=== PATIENT | male | born 1950 | race African-American/Black ===

== ENCOUNTER 2018-10-29 18:09 | Inpatient (IN) | payer OTHER | END 2018-11-12 12:00 | disposition home or self-care (01) | LOC: ER 18:09 → TELE 21:47 → TELE-CENTR 23:04 | PROC: 07B50ZX Excision of Right Axillary Lymphatic, Open Approach, Diagnostic (ICD-10-PCS; principal; 2018-11-11 07:18) | DX: I13.0 Hypertensive heart and chronic kidney disease with heart failure and stage 1 through stage 4 chronic kidney disease, or unspecified chronic kidney disease (principal); N17.0 Acute kidney failure with tubular necrosis; I50.43 Acute on chronic combined systolic (congestive) and diastolic (congestive) heart failure; I24.9 Acute ischemic heart disease, unspecified; C91.10 Chronic lymphocytic leukemia of B-cell type not having achieved remission; I50.82 Biventricular heart failure; I42.9 Cardiomyopathy, unspecified; N18.3 Chronic kidney disease, stage 3 (moderate); E11.22 Type 2 diabetes mellitus with diabetic chronic kidney disease; Z95.0 Presence of cardiac pacemaker; R59.0 Localized enlarged lymph nodes ==

== ENCOUNTER 2018-11-17 12:51 | Inpatient (IN) | payer OTHER, MEDICAID ==
[~2018-11-17] VITALS: Ht 190.5 cm; Wt 101.0 kg
[~2018-11-17 12:51] MED LIST: ALBU2TAB4 PO; AML5T PO; BENZ100C97 PO; DIAZ10TA3 PO; DOCU100T15 PO; FERR-20 PO; FOLITAB OR; FURO40TA4 PO; HYDR-4683 PO; ISOS20TA56 PO; MET50T PO; POLY33504 PO; SACU1TAB4 PO; SPIR25TA8 PO
[2018-11-17 14:24] LABS: Potassium 4.1 mmol/L (3.5-5.1)
[2018-11-17 14:30] LABS: Hematocrit 37.5 % (41.0-53.0); Hemoglobin 12.4 g/dL (13.5-17.5); Mean Corpuscular Hemoglobin 32.6 pg (28.0-32.0); Mean Corpuscular Hgb Conc. 33.1 g/dL (32.0-36.0); Mean Corpuscular Volume 98.7 fL (80.0-100.0); Platelet Count (auto) 185 10^3/uL (140-450); Red Cell Distribution Width 15.9 % (11.8-14.3); White Blood Cell 7.4 10^3/uL (4.4-10.8)
[2018-11-17 14:33] LABS: Albumin 3.4 g/dL (3.4-5.0); BUN/Creatinine Ratio 9.1; Bilirubin, Total 0.5 mg/dL (0.2-1.0); Total Protein 7.1 g/dL (6.4-8.2)
[2018-11-17 14:43] LABS: Basophils % (manual) 0 (0.0-2.0); Blast Cells 0; Metamyelocytes % 0; Myelocytes % 0; Promyelocytes % 0
[2018-11-17 14:44] LABS: INR 1.03 (0.9-1.15); Partial Thromboplastin Time 27.3 sec (23.64-32.05)
[2018-11-17] MEDS ORDERED: NITROGLYCERIN 0.4 MG SL TAB SL PRN (15:00)
[2018-11-17] MEDS ORDERED: FUROSEMIDE 40 MG/4 ML VIAL IV ONE (15:00)
[2018-11-17] MEDS ORDERED: POLYETHYLENE GLYCOL 17 GM PWDR PO PRN (15:00)
[2018-11-17] MEDS ORDERED: MORPHINE SULF INJ 2 MG/ML SYRINGE 1ML IV PRN (15:00)
[2018-11-17] MEDS ORDERED: TEMAZEPAM 15 MG CAP PO PRN (15:00)
[2018-11-17 17:37] LABS: Band Neutrophils % (manual) 1; Eosinophils % (manual) 4 (0-7); Lymphocytes % (manual) 63 (10.0-50.0); Monocytes % (manual) 5 (0-12)
[2018-11-17 17:38] LABS: Reactive Lymphocytes 4
[2018-11-17] MEDS: IPRATROPIUM BROM 0.5 MG/2.5ML INH SOL NEB SCH ×2 (18:09→22:22)
[2018-11-17] MEDS: ALBUTEROL SULF 2.5 MG/0.5ML(0.5%) NEB SOLN NEB SCH ×2 (18:09→22:22)
[2018-11-17] MEDS: ISOSORBIDE DINITRATE 10 MG TAB PO SCH (18:45)
[2018-11-17] MEDS: FUROSEMIDE 40 MG/4 ML VIAL IV SCH (18:45)
[2018-11-17 19:57] LABS: Urine WBC None Seen /hpf (0 - 3)
[2018-11-17] MEDS: HYDROcodone-ACET 10/325MG TAB PO PRN ×2 (19:57→21:08)
--- NOTE | 2018-11-17 20:14 | NUR ---
PATIENT ARRIVED FROM EMERGENCY ROOM AND PLACED IN ROOM 275B. HE IS AO X4 AND AMBULATORY. HE IS ON 2L NC. BED IS LOCKED IN LOWEST POSITION AND SIDE RAILS UP X2. HE HAS BEEN INSTRUCTED TO USE CALL LIGHT IF ASSISTANCE IS NEEDED. WILL CONTINUE TO MONITOR.
[2018-11-17 20:31] LABS: Urine Bacteria NONE SEEN /hpf (None Seen); Urine Blood Negative /uL (Negative)
[2018-11-17] MEDS ORDERED: cloNIDine HCL 0.1 MG TAB PO ONE (21:30)
[2018-11-17] MEDS: SACUBITRIL-VALSARTAN 24mg/26mg TAB PO SCH (22:18)
[2018-11-17 22:35] VITALS: BP 146/113
[2018-11-18 02:53] VITALS: BP 124/74
[2018-11-18 04:45] VITALS: BP 128/92
[2018-11-18] MEDS: HYDROcodone-ACET 10/325MG TAB PO PRN ×2 (05:35→11:43)
[2018-11-18] MEDS: IPRATROPIUM BROM 0.5 MG/2.5ML INH SOL NEB SCH ×5 (05:40→22:10)
[2018-11-18] MEDS: ALBUTEROL SULF 2.5 MG/0.5ML(0.5%) NEB SOLN NEB SCH ×5 (05:40→22:10)
[2018-11-18] MEDS: ISOSORBIDE DINITRATE 10 MG TAB PO SCH ×3 (05:47→17:18)
[2018-11-18] MEDS: FUROSEMIDE 40 MG/4 ML VIAL IV SCH ×2 (05:48→17:18)
[2018-11-18 06:12] LABS: Calcium 8.4 mg/dL (8.5-10.1)
[2018-11-18 06:16] LABS: BUN/Creatinine Ratio 9.8
--- NOTE | 2018-11-18 07:46 | NUR ---
Opening Patient awake, in bed, bed in lowest position, call light within reach. no distress noted at this time MRSA swab sent due to recent admission per [facility] nurse about 2 weeks ago, this is still pending result EF less than 20% per [facility] nurse CXR cardiomegaly. UA negative crea 1.73 trending down rbc 3.8 hgb 12.4 hct 37.5 BNP 3,260 history of pacemaker will continue to monitor this patient
[2018-11-18 09:00] VITALS: BP 133/97
[2018-11-18] MEDS: SACUBITRIL-VALSARTAN 24mg/26mg TAB PO SCH ×2 (10:20→21:39)
[2018-11-18] MEDS: ASPirin 81 mg TAB PO SCH (10:21)
[2018-11-18 13:00] VITALS: BP 135/104
[2018-11-18 17:12] VITALS: BP 136/93
--- NOTE | 2018-11-18 20:00 | NUR ---
OPENING SHIFT NOTE: PATIENT IS RESTING IN BED ON 2L NC. HE IS A0X4 NOT COMPLAINING OF ANY PAIN OR DISCOMFORT AT THE MOMENT. SIDE RAILS ARE UP X2 AND BED IS LOCKED IN LOWEST POSITION. WILL CONTINUE TO MONITOR.
[2018-11-18 22:00] VITALS: BP 126/95
[2018-11-19] MEDS: HYDROcodone-ACET 10/325MG TAB PO PRN ×2 (02:08→09:02)
[2018-11-19 04:30] VITALS: BP 135/98
[2018-11-19] MEDS: IPRATROPIUM BROM 0.5 MG/2.5ML INH SOL NEB SCH ×6 (05:58→22:12)
[2018-11-19] MEDS: ALBUTEROL SULF 2.5 MG/0.5ML(0.5%) NEB SOLN NEB SCH ×6 (05:58→22:12)
[2018-11-19 06:01] LABS: BUN/Creatinine Ratio 8.5; Calcium 8.5 mg/dL (8.5-10.1); Potassium 3.9 mmol/L (3.5-5.1)
[2018-11-19] MEDS: FUROSEMIDE 40 MG/4 ML VIAL IV SCH ×2 (06:27→17:06)
[2018-11-19] MEDS: ISOSORBIDE DINITRATE 10 MG TAB PO SCH ×3 (06:27→17:06)
--- NOTE | 2018-11-19 07:46 | NUR ---
opening patient awake in bed, bed in lowest position, call light within reach. No distress noted at this time. Patient talks about some issues he would like resolved prior to a discharge order; follow up on last wednesdays procedure, he states he had some tissue removed here and tested with MD Serrano, dr odom was consulted for lymphoma Also he states he needs a breathing machine and/or oxygen supplementation; educated patient on the process and will endorse to hospitalist. Will f/u with morning assessment, and continue to monitor this patient.
[2018-11-19 08:36] VITALS: BP 149/104
[2018-11-19] MEDS: SACUBITRIL-VALSARTAN 24mg/26mg TAB PO SCH ×2 (09:02→23:00)
[2018-11-19] MEDS: ASPirin 81 mg TAB PO SCH (09:02)
[2018-11-19 13:00] VITALS: BP 139/101
[2018-11-19 17:00] VITALS: BP 147/111
--- NOTE | 2018-11-19 17:01 | NUR ---
assessment Patient is a 68 year old male who is alert and oriented. Prior to admission patient lived home with his sister Munira who is his caregiver and functioned with her assistance. Patient has a rollator and a cane for home use. Patient informed me he has been admitted again due to Chest pain and SOB. Patient to return home on discharge. Patient has no post discharge needs. Patient to change insurance to [facility] on 11/29/18. Patient agrees to discharge plan home. Addendum: 11/19/18 at 1703 by Kiesha ALEX Amended: Links added.
--- NOTE | 2018-11-19 19:10 | NUR ---
OPENING SHIFT NOTE Assumed care of patient. A&Ox4. Currently on room air with no s/s of SOB or distress. Patient denies pain at this time. 18 gauge IV in left AC flushed with NS and is patent. Patient reports ability to ambulate with a can at baseline. Cane is present at the bedside. Patient informed of POC and verbalizes understanding. Patient instructed to call for assistance if needed. Bed left in low locked position and call sullivan is within reach.
[2018-11-19 21:40] VITALS: BP 142/88
[2018-11-19] MEDS: TEMAZEPAM 15 MG CAP PO PRN (23:00)
[2018-11-20] VITALS (7 sets, daily range): BP systolic 133–143; BP diastolic 69–109
--- NOTE | 2018-11-20 02:00 | NUR ---
CHRIS Received call from [facility] that patient experienced a 6 beat run of v-tach. Patient is resting comfortably in bed, asymptomatic. No c/o chest pain or SOB. Will continue to monitor PRN. Addendum: 11/20/18 at 0211 by BRONSON LAN RN RN VS- bp: 127/81 HR: 85 Spo2: 97% on RA
[2018-11-20] MEDS: ALBUTEROL SULF 2.5 MG/0.5ML(0.5%) NEB SOLN NEB SCH ×5 (06:22→22:42)
[2018-11-20] MEDS: IPRATROPIUM BROM 0.5 MG/2.5ML INH SOL NEB SCH ×5 (06:22→22:30)
[2018-11-20] MEDS: FUROSEMIDE 40 MG/4 ML VIAL IV SCH ×2 (06:32→17:49)
[2018-11-20] MEDS: ISOSORBIDE DINITRATE 10 MG TAB PO SCH ×3 (06:33→17:49)
--- NOTE | 2018-11-20 07:30 | NUR ---
OPENING SHIFT NOTE PATIENT AWAKE MAKING HIS BED. PATIENT DENIES PAIN, SOB OR ANY DISTRESS. AMBULATING WITH A STEADY GAIT. PATIENT VERBALIZED UNDERSTANDING OF DAYS POC. BED IN LOWEST LOCKED POSITION CALL LIGHT WITHIN REACH. WILL CONTINUE TO MONITOR
[2018-11-20] MEDS: SACUBITRIL-VALSARTAN 24mg/26mg TAB PO SCH ×2 (08:50→21:54)
[2018-11-20] MEDS: ASPirin 81 mg TAB PO SCH (08:50)
[2018-11-20] MEDS: HYDROcodone-ACET 10/325MG TAB PO PRN (08:51)
--- NOTE | 2018-11-20 09:46 | NUR ---
DRESSING CHANGE DRESSING CHANGED TO RIGHT INCISION. OLD DRESSING WAS COMING OFF. GAUZE PADS CHANGED AND RE-TAPPED. PATIENT TOLERATED WELL. WILL CONTINUE TO MONITOR
[2018-11-20] MEDS ORDERED: amLODIPine BESYLATE 5 MG TAB PO SCH (10:00)
--- NOTE | 2018-11-20 15:19 | NUR ---
AT BEDSIDE DR BLAND AT BEDSIDE. PATIENT ALERT AND ORIENTED. NO NEW ORDERS GIVEN
--- NOTE | 2018-11-20 18:45 | NUR ---
END OF SHIFT NOTE PATIENT AWAKE IN BED WATCHING TV WHILE EATING DINNER. DENIES PAIN SOB OR ANY DISTRESS AT THIS TIME. BED IS IN LOWEST LOCKED POSITION CALL LIGHT WITHIN REACH. WILL ENDORSE CARE TO NOC RN
--- NOTE | 2018-11-20 19:20 | NUR ---
OPENING SHIFT NOTE Assumed care of patient. Patient is A&Ox4. Currently on room air with no s/s of distress. Reports mild SOB following ambulation. Patient instructed to sit down and rest until SOB resolves. Spo2 is 100% Patient denies pain at this time. Patient is ambulating without the use of assistive devices, but reports the use of a cane at baseline. Cane is present at bedside and patient encouraged to use it while ambulating. 18 gauge IV in left AC flushed with NS and is patent. Patient instructed to call for assistance if needed. Bed left in low locked position and call sullivan is within reach. Will continue to monitor PRN.
--- NOTE | 2018-11-20 20:00 | NUR ---
DRESSING CHANGE Dressing to right lateral chest is not intact. 4x4 gauze and tape removed. Steri strips are intact. No drainage noted. Covered with sterile gauze and secured with tape. Patient tolerates well.
[2018-11-20] MEDS: TEMAZEPAM 15 MG CAP PO PRN (21:55)
[2018-11-20] MEDS: CARVEDILOL 3.125 MG TAB PO SCH (21:57)
[2018-11-21] VITALS (7 sets, daily range): BP systolic 121–135; BP diastolic 85–96
[2018-11-21] MEDS: ISOSORBIDE DINITRATE 10 MG TAB PO SCH ×3 (05:34→18:41)
[2018-11-21] MEDS: FUROSEMIDE 40 MG/4 ML VIAL IV SCH ×2 (05:34→18:41)
[2018-11-21] MEDS: ALBUTEROL SULF 2.5 MG/0.5ML(0.5%) NEB SOLN NEB SCH ×5 (05:55→22:55)
[2018-11-21] MEDS: IPRATROPIUM BROM 0.5 MG/2.5ML INH SOL NEB SCH ×5 (05:55→22:55)
[2018-11-21 05:56] LABS: BUN/Creatinine Ratio 9.1; Calcium 8.9 mg/dL (8.5-10.1); Potassium 3.8 mmol/L (3.5-5.1)
[2018-11-21 06:25] LABS: Hemoglobin 14.2 g/dL (13.5-17.5); Mean Corpuscular Hemoglobin 33.2 pg (28.0-32.0); Mean Corpuscular Hgb Conc. 33.7 g/dL (32.0-36.0); Mean Corpuscular Volume 98.5 fL (80.0-100.0); Platelet Count (auto) 215 10^3/uL (140-450); Red Blood Cells 4.26 10^6/uL (4.5-5.90); Red Cell Distribution Width 16.2 % (11.8-14.3); White Blood Cell 6.9 10^3/uL (4.4-10.8)
[2018-11-21 06:31] LABS: Band Neutrophils % (manual) 0; Basophils % (manual) 0 (0.0-2.0); Blast Cells 0; Metamyelocytes % 0; Myelocytes % 0; Promyelocytes % 0
--- NOTE | 2018-11-21 07:15 | NUR ---
OPENING SHIFT NOTE PATIENT IS UP AMBULATING IN THE [place] WITH A STEADY GAIT. WALKED WITH PATIENT BACK TO HIS ROOM AND DISCUSSED POC. PATIENT VERBALIZED UNDERSTANDING. BED IS IN LOWEST LOCKED POSITION CALL LIGHT IS WITHIN REACH. WILL CONTINUE TO MONITOR
[2018-11-21 08:49] LABS: Eosinophils % (manual) 4 (0-7); Lymphocytes % (manual) 49 (10.0-50.0); Monocytes % (manual) 9 (0-12)
[2018-11-21 08:51] LABS: Reactive Lymphocytes 3
[2018-11-21] MEDS: SACUBITRIL-VALSARTAN 24mg/26mg TAB PO SCH ×2 (09:38→22:02)
[2018-11-21] MEDS: CARVEDILOL 3.125 MG TAB PO SCH ×2 (09:38→22:02)
[2018-11-21] MEDS: ASPirin 81 mg TAB PO SCH (09:39)
--- NOTE | 2018-11-21 14:11 | NUR ---
NUTRITION ASSESSMENT NOTES Please refer to link notes of nutrition screen form filed under the intervention section of the plan of care for further details. Est. Needs: 2000 kcal to 2500 kcal (20-25 kcal/kgBW), 88 gms to 106 gms pro (1.0-1.2 gms/kgIBW). Will continue to monitor pertinent labs and reassess nutrient need prn Thank you. Addendum: 11/21/18 at [address] Amended: Links added.
--- NOTE | 2018-11-21 18:45 | NUR ---
END OF SHIFT NOTE PATIENT IN BED WATCHING TV. PATIENT DENIES PAIN SOB OR ANY DISTRESS. BED IS IN LOWEST LOCKED POSITION CALL LIGHT WITHIN REACH. WILL ENDORSE CARE TO NOC RN
--- NOTE | 2018-11-21 19:30 | NUR ---
Opening Shift Note Received report from Nelda BHATIA. Assumed care of patient, awake and alert. No S/S of distress/SOB or pain. Instructed on POC and to call for assist PRN, will continue to monitor for changes Q1hr and PRN.
[2018-11-21] MEDS: TEMAZEPAM 15 MG CAP PO PRN (22:08)
[2018-11-22 05:00] VITALS: BP 142/94
[2018-11-22] MEDS: FUROSEMIDE 40 MG/4 ML VIAL IV SCH ×2 (06:02→18:28)
[2018-11-22] MEDS: ISOSORBIDE DINITRATE 10 MG TAB PO SCH ×3 (06:03→18:29)
[2018-11-22 06:20] LABS: Hematocrit 42.1 % (41.0-53.0); Hemoglobin 14.4 g/dL (13.5-17.5); Mean Corpuscular Hemoglobin 33.6 pg (28.0-32.0); Mean Corpuscular Hgb Conc. 34.2 g/dL (32.0-36.0); Mean Corpuscular Volume 98.2 fL (80.0-100.0); Platelet Count (auto) 184 10^3/uL (140-450); Red Blood Cells 4.28 10^6/uL (4.5-5.90); White Blood Cell 6.2 10^3/uL (4.4-10.8)
[2018-11-22 06:23] LABS: Calcium 9.4 mg/dL (8.5-10.1); Potassium 4.1 mmol/L (3.5-5.1)
[2018-11-22 06:29] LABS: BUN/Creatinine Ratio 11.8
[2018-11-22 06:33] LABS: Band Neutrophils % (manual) 0; Basophils % (manual) 0 (0.0-2.0); Blast Cells 0; Metamyelocytes % 0; Myelocytes % 0; Promyelocytes % 0; Reactive Lymphocytes 0
[2018-11-22] MEDS: IPRATROPIUM BROM 0.5 MG/2.5ML INH SOL NEB SCH ×5 (07:17→21:18)
[2018-11-22] MEDS: ALBUTEROL SULF 2.5 MG/0.5ML(0.5%) NEB SOLN NEB SCH ×5 (07:17→21:18)
--- NOTE | 2018-11-22 07:35 | NUR ---
Care endorsed to Shannan BHATIA.
--- NOTE | 2018-11-22 07:56 | NUR ---
RECEIVED REPORT AND ASSUME CARE OF PT. A/OX4. DENIED S/S ACUTE DISTRESS. UPDATE PT WITH POC. BED AT LOWEST POSITION. CALL LIGHT AND BELONGINGS WITHIN REACH. WILL CONT TO MONITOR.
[2018-11-22 08:35] LABS: Eosinophils % (manual) 4 (0-7); Lymphocytes % (manual) 56 (10.0-50.0); Monocytes % (manual) 11 (0-12)
[2018-11-22 08:38] VITALS: BP 125/85
[2018-11-22] MEDS: SACUBITRIL-VALSARTAN 24mg/26mg TAB PO SCH ×2 (10:02→21:51)
[2018-11-22] MEDS: ASPirin 81 mg TAB PO SCH (10:03)
[2018-11-22] MEDS: CARVEDILOL 3.125 MG TAB PO SCH ×2 (10:03→21:52)
[2018-11-22 13:00] VITALS: BP 129/92
[2018-11-22 16:45] VITALS: BP 138/91
--- NOTE | 2018-11-22 19:20 | NUR ---
Opening Shift Note Received report from Didian RN. Assumed care of patient, awake and alert. No S/S of distress/SOB or pain. Instructed on POC and to call for assist PRN, will continue to monitor for changes Q1hr and PRN.
[2018-11-22 20:00] VITALS: BP 126/91
[2018-11-22 21:43] VITALS: BP 126/91
[2018-11-22] MEDS: TEMAZEPAM 15 MG CAP PO PRN (21:51)
[2018-11-23] VITALS (8 sets, daily range): BP systolic 125–142; BP diastolic 68–101
[2018-11-23] MEDS: FUROSEMIDE 40 MG/4 ML VIAL IV SCH ×2 (06:15→17:34)
[2018-11-23] MEDS: ISOSORBIDE DINITRATE 10 MG TAB PO SCH ×3 (06:16→17:35)
[2018-11-23] MEDS: ALBUTEROL SULF 2.5 MG/0.5ML(0.5%) NEB SOLN NEB SCH ×5 (06:45→22:50)
[2018-11-23] MEDS: IPRATROPIUM BROM 0.5 MG/2.5ML INH SOL NEB SCH ×5 (06:45→22:50)
[2018-11-23] MEDS: SACUBITRIL-VALSARTAN 24mg/26mg TAB PO SCH ×2 (09:18→22:32)
[2018-11-23] MEDS: CARVEDILOL 3.125 MG TAB PO SCH ×2 (09:19→22:31)
[2018-11-23] MEDS: ASPirin 81 mg TAB PO SCH (09:20)
--- NOTE | 2018-11-23 09:20 | NUR ---
Respiratory note: PT ASSESSED FOR ORDERED RA ABG. PT SPO2 97-99% ON RAQ. PT AGREED TO WALK WITH RT AND MONITOR SPO2. SPO2 MAINTAINED 97%. PT AWARE. DR. NICOLE NOTIFIED AND ORDERED TO DC ABG ORDER.
--- NOTE | 2018-11-23 10:37 | NUR ---
Per consult home walker, home shower chair and home nebulizer. Contacted [facility] Ph: ) Fax: ) faxed medical records. Per Danilo from [facility] they will deliver the equipment home today and will call me back with a time frame once they receive authorization from [facility]. Addendum: 11/23/18 at 1037 by ADELINA KOCH Amended: Links added. Addendum: 11/23/18 at 1056 by ADELINA KOCH Aj Falcon from [facility] home shower chair is not cover by the insurance. Per Terrie from [facility] she is still waiting for authorization from [facility] for home walker and home nebulizer. I will inform RN and provider. Addendum: 11/24/18 at 1115 by ADELINA KOCH SS Aj Falcon from [facility] home shower chair was approve by secondary insurance and they will deliver home walker, shower chair and nebulizer at bed side today between the hours 10:00am-12:30. Informed JANNETTE Oropeza.
--- NOTE | 2018-11-23 12:57 | NUR ---
Spoke to Tigist at [facility] and she stated that [facility] gives auth to [employer], not [facility]. I have faxed the dme order previously to [facility])
--- NOTE | 2018-11-23 15:33 | NUR ---
A/OX4. DENIED S/S ACUTE DISTRESS. DC INSTRUCTIONS GIVEN AND PT VERBALIZED UNDERSTANDING. EMPHASIZED NEED FOR F/U APPOINTMENTS. PT WAITING FOR A RIDE HOME. CHARGE NURSE AWARE. Addendum: 11/23/18 at 2003 by VALENTINE QUINTERO RN PT OWN MEDS PICK FROM PHARMACY AND HANDED TO PT.
--- NOTE | 2018-11-23 15:57 | NUR ---
I called [facility] [phone] extension [phone] and left message for case assembler Rebekah regarding needing authorization for [facility] Care-awaiting return call.
--- NOTE | 2018-11-23 16:42 | NUR ---
I received a message from Emily at [facility] asking me to fax the [facility] order to [phone]-faxed as requested. Per the message, the order for the nebulizer goes through the health plan.
--- NOTE | 2018-11-23 16:47 | NUR ---
I faxed nebulizer order to [facility].
--- NOTE | 2018-11-23 17:13 | NUR ---
I spoke with Emily at [facility], she said she is sending the authorization for both the FWW and the nebulizer to [facility].
--- NOTE | 2018-11-23 17:16 | NUR ---
PER SS, THEY ARE STILL WAITING FOR AUTHORIZATION FOR DME, SO NOT SAFE TO DC PT.
--- NOTE | 2018-11-23 19:50 | NUR ---
PT RESTING IN BED. NO S/S ACUTE DISTRESS NOTED. ENDORSED CARE TO NIGHT NURSE.
--- NOTE | 2018-11-23 20:00 | NUR ---
patient is unable to be discharged home at this time, we have not been able to receive proper equipment from home health, front wheel walker and nebulizer. patient states he does not feel safe going home without it. hospitalist paged to hold discharge until morning. will continue to monitor patient and await hospitalist orders.
[2018-11-23] MEDS: TEMAZEPAM 15 MG CAP PO PRN (23:06)
[2018-11-24 05:44] VITALS: BP 129/95
[2018-11-24] MEDS: ISOSORBIDE DINITRATE 10 MG TAB PO SCH ×2 (06:05→12:49)
[2018-11-24] MEDS: FUROSEMIDE 40 MG/4 ML VIAL IV SCH (06:05)
[2018-11-24] MEDS: IPRATROPIUM BROM 0.5 MG/2.5ML INH SOL NEB SCH ×3 (07:30→14:15)
[2018-11-24] MEDS: ALBUTEROL SULF 2.5 MG/0.5ML(0.5%) NEB SOLN NEB SCH ×3 (07:30→14:15)
[2018-11-24 08:15] VITALS: BP 123/78
--- NOTE | 2018-11-24 08:33 | NUR ---
Opening Shift Note Assumed care of patient, awake and alert. No S/S of distress OR SOB. Pt rates pain at a 6/10 on the adult pain scale and denies any pain medications at this time. Bed in lowest and locked position with side rails up x2. Instructed on POC and to call for assist PRN, will continue to monitor for changes Q1hr and PRN. Addendum: 11/24/18 at 0837 by BRONSON LEBLANC RN RN Pt rounds at 0740
[2018-11-24 09:00] VITALS: BP 123/78
--- NOTE | 2018-11-24 09:16 | NUR ---
I have called [facility] and had to leave message concerning hold on pt d/c since [facility] has not given auth yet. They are to call me back and I will find out what the hold up is on issuing auth to [facility]
[2018-11-24] MEDS: SACUBITRIL-VALSARTAN 24mg/26mg TAB PO SCH (09:35)
[2018-11-24] MEDS: CARVEDILOL 3.125 MG TAB PO SCH (09:36)
[2018-11-24] MEDS: ASPirin 81 mg TAB PO SCH (09:36)
--- NOTE | 2018-11-24 09:38 | NUR ---
called PERLITA Welch for [facility] and had to leave message requesting her to call me and let me know why [facility] did not get auth for dme yesterday. I also stated pt's d/c was held because of this. I am on hold now to see if [facility] has gotten auth from [facility]
--- NOTE | 2018-11-24 09:54 | NUR ---
Per Felipa at [facility], they have received auth this am. Per Danilo at [facility], he will find out from his dispatcher when they are scheduled to deliver equipment and notify me and primary RN.
--- NOTE | 2018-11-24 10:05 | NUR ---
RECIEVED CALL FROM [employer]. ETA FOR SUPPLIES DELIVERY IS [phone].
--- NOTE | 2018-11-24 10:40 | NUR ---
DR. NICOLE AT BEDSIDE DISCUSSING POC WITH PT.
[2018-11-24 13:00] VITALS: BP 125/89
--- NOTE | 2018-11-24 15:50 | NUR ---
Discharge instructions given as ordered. Encourage to follow up with PMD as instructed. All questions and concerns addressed. Patient verbalized understanding. Medication reconciliation form completed and copy given to patient. Home medications held in Pharmacy returned to patient. No needed vaccines. IV removed with catheter intact, pressure dressing applied. Telemetry unit returned to [facility].
--- NOTE | 2018-11-24 15:55 | NUR ---
Cab called Per patient request.
--- NOTE | 2018-11-24 16:15 | NUR ---
Patient denied wheel chair. Pt taken to cab with all personal belongings, accompanied by staff. No distress noted at time of departure.
== END 2018-11-24 16:15 | disposition home or self-care (01) | DRG 291 ==
LOC: EDBD 12:51 → ER 12:58 → TELE 12:59 → TELE-WESTW 22:34
PROVIDERS: ADMIT Internal Medicine; ATTEND Internal Medicine
DX: I13.0 Hypertensive heart and chronic kidney disease with heart failure and stage 1 through stage 4 chronic kidney disease, or unspecified chronic kidney disease (principal); J96.00 Acute respiratory failure, unspecified whether with hypoxia or hypercapnia; I50.23 Acute on chronic systolic (congestive) heart failure; C85.90 Non-Hodgkin lymphoma, unspecified, unspecified site; J44.9 Chronic obstructive pulmonary disease, unspecified; N18.3 Chronic kidney disease, stage 3 (moderate); I25.10 Atherosclerotic heart disease of native coronary artery without angina pectoris; F17.210 Nicotine dependence, cigarettes, uncomplicated; I42.0 Dilated cardiomyopathy; Z82.3 Family history of stroke; Z82.49 Family history of ischemic heart disease and other diseases of the circulatory system; Z83.3 Family history of diabetes mellitus; Z86.73 Personal history of transient ischemic attack (TIA), and cerebral infarction without residual deficits; Z95.810 Presence of automatic (implantable) cardiac defibrillator; Z84.1 Family history of disorders of kidney and ureter
CPT/HCPCS: 36415; 71046; 80048; 80053; 81001; 83880; 84484; 85007; 85027; 85610; 85730; 87081; 93005; 94640; 94761; 96374; G0378

== ENCOUNTER 2019-02-03 21:03 | Inpatient (IN) | payer OTHER, MEDICAID ==
[~2019-02-03] VITALS: Ht 190.5 cm; Wt 102.5 kg
[~2019-02-03 21:03] MED LIST changes: -DIAZ10TA3 PO; -HYDR-4683 PO; +HYDR-4833 PO
[2019-02-03 22:27] LABS: INR 0.97 (0.9-1.15); Partial Thromboplastin Time 23.9 sec (23.64-32.05)
[2019-02-03 22:32] LABS: Albumin 3.8 g/dL (3.4-5.0); BUN/Creatinine Ratio 18.1; Potassium 3.1 mmol/L (3.5-5.1)
[2019-02-03 22:33] LABS: Hematocrit 42.4 % (41.0-53.0); Hemoglobin 14.2 g/dL (13.5-17.5); Mean Corpuscular Hemoglobin 31.9 pg (28.0-32.0); Mean Corpuscular Hgb Conc. 33.5 g/dL (32.0-36.0); Mean Corpuscular Volume 95.3 fL (80.0-100.0); Platelet Count (auto) 140 10^3/uL (140-450); Red Blood Cells 4.45 10^6/uL (4.5-5.90); Red Cell Distribution Width 17.2 % (11.8-14.3); White Blood Cell 9.8 10^3/uL (4.4-10.8)
[2019-02-03 22:36] LABS: Bilirubin, Total 1.1 mg/dL (0.2-1.0); Total Protein 7.6 g/dL (6.4-8.2)
[2019-02-03 22:48] LABS: Basophils % (manual) 0 (0.0-2.0); Blast Cells 0; Metamyelocytes % 0; Myelocytes % 0; Promyelocytes % 0
[2019-02-04] MEDS ORDERED: MORPHINE SULF INJ 2 MG/ML SYRINGE 1ML IV PRN
[2019-02-04] MEDS ORDERED: ACETAMINOPHEN 325 MG TAB PO PRN
[2019-02-04] MEDS ORDERED: ALBUTEROL SULF 2.5 MG/0.5ML(0.5%) NEB SOLN NEB PRN
[2019-02-04] MEDS ORDERED: ATORVASTATIN 20 MG TAB PO ONE
[2019-02-04] MEDS ORDERED: NITROGLYCERIN 0.4 MG SL TAB SL PRN
[2019-02-04] MEDS ORDERED: ONDANSETRON HCL 4 MG/2 ML VIAL IV PRN
[2019-02-04] MEDS ORDERED: POTASSIUM CHL 20 Meq TABLET PO ONE
[2019-02-04 01:05] LABS: Band Neutrophils % (manual) 1; Eosinophils % (manual) 2 (0-7); Lymphocytes % (manual) 59 (10.0-50.0); Monocytes % (manual) 14 (0-12); Reactive Lymphocytes 2
--- NOTE | 2019-02-04 06:15 | NUR ---
Respiratory note: PT ASSESSED FOR PRN MN TX. HR 74, RR 15, POX 97% ON 2L/M NC, BREATH SOUNDS ARE CLEAR/DIMINISHED. NO SOB OR DISTRESS NOTED. PT WAS NOTIFY TO HAVE RT PAGE FOR MN TX.
[2019-02-04] MEDS: HYDROcodone-ACET 5/325MG TAB PO PRN (06:32)
[2019-02-04] MEDS: PANTOPRAZOLE 40 MG TAB PO SCH (07:37)
[2019-02-04 08:40] VITALS: BP 106/71
[2019-02-04 09:19] VITALS: BP 108/89
[2019-02-04] MEDS ORDERED: amLODIPine BESYLATE 5 MG TAB PO SCH (10:00)
[2019-02-04] MEDS ORDERED: METOPROLOL TARTRATE 25 MG TAB PO SCH ×2 (10:00→11:00)
[2019-02-04] MEDS ORDERED: GABA100C9 PO (10:03)
[2019-02-04] MEDS ORDERED: NITR0.4S29 SL (10:03)
[2019-02-04] MEDS ORDERED: NALO4SPR2 (10:03)
[2019-02-04] MEDS: SACUBITRIL-VALSARTAN 24mg/26mg TAB PO SCH ×2 (10:46→21:57)
[2019-02-04] MEDS: ISOSORBIDE MONONITRATE IR 20 MG TAB PO SCH ×2 (10:46→21:58)
[2019-02-04] MEDS: POTASSIUM CHL 10 Meq TABLET PO SCH (10:48)
[2019-02-04] MEDS: FUROSEMIDE 40 MG TAB PO SCH (10:48)
[2019-02-04] MEDS: ASPirin 81 mg TAB PO SCH (10:48)
[2019-02-04] MEDS: SPIRONOLACTONE 25 MG TAB PO SCH (10:49)
[2019-02-04 11:07] LABS: Hematocrit 43.4 % (41.0-53.0); Hemoglobin 14.4 g/dL (13.5-17.5); Mean Corpuscular Hemoglobin 31.8 pg (28.0-32.0); Mean Corpuscular Hgb Conc. 33.1 g/dL (32.0-36.0); Mean Corpuscular Volume 96.3 fL (80.0-100.0); Platelet Count (auto) 120 10^3/uL (140-450); Red Blood Cells 4.51 10^6/uL (4.5-5.90); Red Cell Distribution Width 16.8 % (11.8-14.3); White Blood Cell 7.3 10^3/uL (4.4-10.8)
[2019-02-04 11:09] LABS: Band Neutrophils % (manual) 0; Basophils % (manual) 0 (0.0-2.0); Blast Cells 0; Metamyelocytes % 0; Myelocytes % 0; Promyelocytes % 0
[2019-02-04 11:29] LABS: Calcium 9.4 mg/dL (8.5-10.1); Potassium 3.7 mmol/L (3.5-5.1)
[2019-02-04 13:00] VITALS: BP 105/63
[2019-02-04 13:04] LABS: Eosinophils % (manual) 2 (0-7); Lymphocytes % (manual) 64 (10.0-50.0); Monocytes % (manual) 4 (0-12); Reactive Lymphocytes 4
[2019-02-04 15:07] LABS: Magnesium 1.9 mg/dL (1.6-2.6); Potassium 3.6 mmol/L (3.5-5.1)
[2019-02-04 17:00] VITALS: BP 114/68
--- NOTE | 2019-02-04 19:18 | NUR ---
Respiratory note: ASSESSED PT FOR PRN MED NEB TX. PT IS CURRENTLY ON ROOM AIR: HR 63, RR 16, SPO2 95%. PT SHOWS NO S/S OF SOB OR RESPIRATORY DISTRESS. MED NEB TX NOT INDICATED AT THIS TIME. WILL CONTINUE TO MONITOR.
--- NOTE | 2019-02-04 19:24 | NUR ---
Opening Shift Note Assumed care of patient, awake and alert x 4. No S/S of distress/SOB or pain. Bed is in lowest position and locked. Call light within reach. Board updated. Tele box number matches monitor and leads are in correct placement. Instructed on POC and to call for assist PRN, will continue to monitor for changes Q1hr and PRN.
--- NOTE | 2019-02-04 20:28 | NUR ---
IV insertion IV access obtained, via clean technique by inserting a 20 gauge catheter into a vein in the left forearm after 1 attempt. IV secured properly. No trauma to site. Patient tolerated well.
[2019-02-04] MEDS ORDERED: HYDR-4798 PO (21:17)
[2019-02-04 21:44] VITALS: BP 123/80
[2019-02-04] MEDS: CARVEDILOL 3.125 MG TAB PO SCH (21:55)
[2019-02-04] MEDS: TEMAZEPAM 15 MG CAP PO PRN (21:59)
[2019-02-04] MEDS: ATORVASTATIN 20 MG TAB PO SCH (22:00)
[2019-02-05] MEDS: HYDROcodone-ACET 5/325MG TAB PO PRN (03:06)
[2019-02-05 05:36] VITALS: BP 105/51
--- NOTE | 2019-02-05 05:50 | NUR ---
PT ASSESSED FOR PRN HHN TX. PT IS ON 3LNC, SPO2 97%, HR 40, RR 19. NO S/S OF RESPIRATORY DISTRESS. PT AWARE TO HAVE RT PAGED IF HE NEEDS A BREATHING TX. WILL CONTINUE TO MONITOR.
[2019-02-05 06:04] LABS: Magnesium 1.9 mg/dL (1.6-2.6); Potassium 3.5 mmol/L (3.5-5.1)
[2019-02-05 06:07] LABS: BUN/Creatinine Ratio 18.5; Calcium 9.2 mg/dL (8.5-10.1)
[2019-02-05] MEDS: PANTOPRAZOLE 40 MG TAB PO SCH (06:35)
--- NOTE | 2019-02-05 07:30 | NUR ---
Opening Shift Note Assumed care of patient, awake and alert. No S/S of distress/SOB or pain. Instructed on POC and to call for assist PRN, will continue to monitor for changes Q1hr and PRN.
[2019-02-05 08:00] VITALS: BP 123/94
[2019-02-05 09:00] VITALS: BP 123/94
[2019-02-05] MEDS: ASPirin 81 mg TAB PO SCH (10:32)
[2019-02-05] MEDS: SPIRONOLACTONE 25 MG TAB PO SCH (10:32)
[2019-02-05] MEDS: CARVEDILOL 3.125 MG TAB PO SCH ×2 (10:33→22:01)
[2019-02-05] MEDS: ISOSORBIDE MONONITRATE IR 20 MG TAB PO SCH ×2 (10:33→22:01)
[2019-02-05] MEDS: SACUBITRIL-VALSARTAN 24mg/26mg TAB PO SCH ×2 (10:33→22:01)
[2019-02-05] MEDS: FUROSEMIDE 40 MG TAB PO SCH (10:34)
[2019-02-05] MEDS: POTASSIUM CHL 10 Meq TABLET PO SCH (10:34)
[2019-02-05 13:00] VITALS: BP 110/94
[2019-02-05 17:00] VITALS: BP 107/79
--- NOTE | 2019-02-05 19:05 | NUR ---
PT ASSESSED FOR PRN TX. PT IS RESTING WITH NO ACUTE DISTRESS NOTED. TX IS NOT INDICATED AT THIS TIME. PT IS AWARE TO PAGE IF TX NEEDED OR BECOMES SOB. HR 65 RR 18 POX99% ON 3 LPM VIA NC. B/S CLEAR.
[2019-02-05 21:57] VITALS: BP 124/64
[2019-02-05] MEDS: MAGNESIUM OXIDE 400 MG TAB PO SCH (22:02)
[2019-02-05] MEDS: TEMAZEPAM 15 MG CAP PO PRN (22:02)
[2019-02-05] MEDS: ATORVASTATIN 20 MG TAB PO SCH (22:02)
[2019-02-06 04:46] VITALS: BP 126/75
[2019-02-06 05:33] LABS: BUN/Creatinine Ratio 17.7; Calcium 9.2 mg/dL (8.5-10.1); Potassium 3.9 mmol/L (3.5-5.1)
[2019-02-06] MEDS: PANTOPRAZOLE 40 MG TAB PO SCH (06:12)
[2019-02-06 08:00] VITALS: BP 107/76
[2019-02-06 09:00] VITALS: BP 107/76
--- NOTE | 2019-02-06 10:28 | NUR ---
Respiratory note: PT ASSESSED FOR PRN MED NEB TX. NO SOB NOTED ON RA. POX 96%, HR 45, RR 20. B/S ARE CLEAR THROUGHOUT POSTERIORLY. PT IS AWARE TO PRESS THE CALL LIGHT IF HE FEELS SOB TO RECEIVE A MED NEB TX.
[2019-02-06] MEDS: SPIRONOLACTONE 25 MG TAB PO SCH (11:13)
[2019-02-06] MEDS: CARVEDILOL 3.125 MG TAB PO SCH ×2 (11:13→22:37)
[2019-02-06] MEDS: ASPirin 81 mg TAB PO SCH (11:13)
[2019-02-06] MEDS: SACUBITRIL-VALSARTAN 24mg/26mg TAB PO SCH ×2 (11:13→22:38)
[2019-02-06] MEDS: ISOSORBIDE MONONITRATE IR 20 MG TAB PO SCH ×2 (11:14→22:38)
[2019-02-06] MEDS: MAGNESIUM OXIDE 400 MG TAB PO SCH ×2 (11:14→22:38)
[2019-02-06 13:00] VITALS: BP 104/65
[2019-02-06 17:00] VITALS: BP 109/69
--- NOTE | 2019-02-06 19:25 | NUR ---
Opening Shift Note Assumed care of patient, awake and alert x 4. No S/S of distress/SOB or pain.Bed is in lowest position and locked. Call light within reach. Board updated. Tele box number matches monitor and leads are in correct placement. Tele box number matches monitor and leads are in correct placement. Instructed on POC and to call for assist PRN, will continue to monitor for changes Q1hr and PRN.
--- NOTE | 2019-02-06 20:20 | NUR ---
Respiratory note: ASSESSED PT FOR PRN MED NEB AT THIS TIME, PT DENIES SOB AT THIS TIME, NO RESP DISTRESS NOTED, NO TX INDICATED. PULSE OX 96% ON 3LNC, HR 79, RR 20, BILATERAL BS CLEAR.
--- NOTE | 2019-02-06 21:28 | NUR ---
Patient had a sixteen beat run of ventricular tachycardia at 2110. Patient was reportedly not doing anything besides laying in bed when event occurred. Patient is asymptomatic. Patient had already returned to paced rhythm before staff entered room. Vitals: BP: 132/72, HR: 75, RR: 18, temp: 98.3, O2 sat: 99% on 2 l/min NC, no pain. EKG attempted but patient was in paced rhythm at this time, not V-Tach. Event printed by slot technician and placed in chart. Will notify on-call joint sealer.
--- NOTE | 2019-02-06 21:29 | NUR ---
MD Samuels paged about ventricular tachycardia
[2019-02-06 22:00] VITALS: BP 108/70
--- NOTE | 2019-02-06 22:19 | NUR ---
MD Samuels notified of Ventricular tachycardia event and current vitals. Orders: 1) Metoprol tartrate 50 mg PO Once, 2) Magnesium Sulfate 2 gm IV PB once. Orders repeated, verified, and placed. Addendum: 02/06/19 at 2311 by CAMMIE ELLER RN MD Samuels made yu of current magnesium level, and that patient has Coreg and Magnesium oxide scheduled at this time as well. Per MD Samuels, give all medications including IV magnesium and Toprol.
--- NOTE | 2019-02-06 22:28 | NUR ---
Patient had second 12 beat run of ventricular tachycardia at 22:25. Patient is still asymptomatic. Will continue to monitor.
[2019-02-06] MEDS ORDERED: METOPROLOL TARTRATE 50 MG TAB PO ONE (22:30)
[2019-02-06] MEDS ORDERED: METOPROLOL SUCCINATE XL 50 MG TAB PO ONE (22:30)
[2019-02-06] MEDS: ATORVASTATIN 20 MG TAB PO SCH (22:38)
[2019-02-06] MEDS: MAGNESIUM SULFATE 1GM/100ML 100 ML IV SCH ×2 (22:39→23:53)
[2019-02-06] MEDS: TEMAZEPAM 15 MG CAP PO PRN (22:52)
[2019-02-06] MEDS: HYDROcodone-ACET 5/325MG TAB PO PRN (22:52)
--- NOTE | 2019-02-06 23:03 | NUR ---
2108 MD Samuels aware of second run of Ventricular tachycardia. No new orders given.
--- NOTE | 2019-02-06 23:55 | NUR ---
Paging hospitalist to notify of Ventricular tachycardia events and to request lab tests after giving 2 gms of magnesium.
[2019-02-07 05:00] VITALS: BP 103/65
[2019-02-07] MEDS: HYDROcodone-ACET 5/325MG TAB PO PRN ×2 (05:18→22:39)
[2019-02-07] MEDS: PANTOPRAZOLE 40 MG TAB PO SCH (06:03)
--- NOTE | 2019-02-07 07:49 | NUR ---
PATIENT ROUNDS PATIENT IN BED, NO DISTRESS NOTED, CALL LIGHT WITHIN REACH, BED IN LOWEST POSITION, SIDE RAILS UP X2. PATIENT ENCOURAGED TO CALL IF THEY NEED ANYTHING. WILL CONTINUE TO MONITOR.
[2019-02-07 08:00] VITALS: BP 115/78
[2019-02-07] MEDS: SACUBITRIL-VALSARTAN 24mg/26mg TAB PO SCH ×2 (10:00→22:29)
[2019-02-07] MEDS: ASPirin 81 mg TAB PO SCH (10:04)
[2019-02-07] MEDS: SPIRONOLACTONE 25 MG TAB PO SCH (10:04)
[2019-02-07] MEDS: CARVEDILOL 3.125 MG TAB PO SCH (10:05)
[2019-02-07] MEDS: ISOSORBIDE MONONITRATE IR 20 MG TAB PO SCH ×2 (10:05→22:29)
[2019-02-07] MEDS: MAGNESIUM OXIDE 400 MG TAB PO SCH ×2 (10:05→22:26)
--- NOTE | 2019-02-07 11:01 | NUR ---
CARDIO CONSULT PENDING DISCHARGE LAST CONSULT NOTIFICATION DOCUMENTED WAS 36 HOURS AGO, I HAVE ASKED KNURLING MACHINE OPERATOR TO RECALL CONSULT, PER DR NICOLE PATIENT CAN GO HOME IF OKAY WITH JAVA ARCHITECT.
--- NOTE | 2019-02-07 12:19 | NUR ---
Cardio consult Dr Orozco at bedside, patent care discussed with patient and bedside RN, all questions and concerns addressed, Per Dr Orozco, plan is to have Dr Johnson come to see patient regarding AICD shocks and runs of V-Tach and possible ablation. Consult has been placed and will page MD regarding consult. Dr Black spoke with Dr Orozco regarding patient care/update, Dr Black ordered to hold discharge for now. Dip Painter Johan has been updated.
[2019-02-07] MEDS ORDERED: CARVEDILOL 3.125 MG TAB PO ONE (12:30)
--- NOTE | 2019-02-07 14:07 | NUR ---
Nutrition Assessment Notes please see attached link for complete assessment Est. Needs BW 102 [id number] kcal (23-25 kcal/kgBW), 81-102 gms pro (0.8-1.0 gms/kgBW r/t elev RFT CKD). Will continue to monitor pertinent labs and reassess nutrient need prn Addendum: 02/07/19 at 1408 by Gail Ordoñez RD Amended: Links added.
[2019-02-07 17:00] VITALS: BP 111/77
--- NOTE | 2019-02-07 19:30 | NUR ---
Opening shift note Patient in bed watching TV alert and oriented x 4, verbally coherent, able to make needs known. Patient's respiration even and unlabored. Patient denies chest pain at this time. Plan of care discussed, patient verbalized understanding. All needs attended, will continue to monitor.
--- NOTE | 2019-02-07 21:36 | NUR ---
Called pharmacy regarding Entresto 4 tabs not available on the floor. Per Lauren/pharmacy, will work on it and will be available in a few minutes.
[2019-02-07 22:00] VITALS: BP 99/70
[2019-02-07] MEDS: ATORVASTATIN 20 MG TAB PO SCH (22:27)
[2019-02-07] MEDS: TEMAZEPAM 15 MG CAP PO PRN (22:28)
[2019-02-07] MEDS: CARVEDILOL 12.5 MG TAB PO SCH (22:30)
--- NOTE | 2019-02-08 03:00 | NUR ---
Received patient from JANNETTE Gonzalez. Patient resting in bed with eyes closed. No S/S of distress. Will continue to monitor patient Q1hr and PRN.
[2019-02-08 05:00] VITALS: BP 102/76
[2019-02-08] MEDS: PANTOPRAZOLE 40 MG TAB PO SCH (06:46)
--- NOTE | 2019-02-08 07:50 | NUR ---
PATIENT ROUNDS PATIENT SITTING IN BED, NO DISTRESS NOTED, BED IN LOWEST POSITION, SIDE RAILS UP X2, CALL LIGHT WITHIN REACH. PATIENT ENCOURAGED TO CALL IF THEY NEED ANYTHING.
[2019-02-08 08:00] VITALS: BP 118/70
[2019-02-08 09:00] VITALS: BP 118/70
[2019-02-08] MEDS: SACUBITRIL-VALSARTAN 24mg/26mg TAB PO SCH (10:00)
[2019-02-08] MEDS: SPIRONOLACTONE 25 MG TAB PO SCH (10:19)
[2019-02-08] MEDS: MAGNESIUM OXIDE 400 MG TAB PO SCH (10:20)
[2019-02-08] MEDS: ASPirin 81 mg TAB PO SCH (10:20)
[2019-02-08] MEDS: CARVEDILOL 12.5 MG TAB PO SCH (10:20)
--- NOTE | 2019-02-08 10:20 | NUR ---
DR NICOLE AT BEDSIDE DR GUNDERSON SPOKE WITH DR ORDAZ FOR PENDING CARDIO CONSULT, PER DR NICOLE PATIENT CAN GO HOME, NEW PRESCRIPTION FOR PATIENT PER DR ORDAZ REQUEST. PATIENT HAS BEEN UPDATED ON PLAN OF CARE AND VERBALIZED AGREEMENT AND UNDERSTANDING.
[2019-02-08] MEDS: ISOSORBIDE MONONITRATE IR 20 MG TAB PO SCH (10:21)
--- NOTE | 2019-02-08 11:06 | NUR ---
PATIENTS PRESCRIPTION TAKEN DOWN TO [facility] TO BE FILLED PRIOR TO GOING HOME PER DR NICOLE REQUEST.
--- NOTE | 2019-02-08 11:11 | NUR ---
[facility], THEY HAVE NOTIFIED THE PATIENT AND PATIENT REQUESTING TO TAKE PRESCRIPTION TO HIS OTHER PHARMACY.
[2019-02-08 13:00] VITALS: BP 81/45
--- NOTE | 2019-02-08 13:31 | NUR ---
IV removal IV DC'd with clean sterile technique, catheter fully intact. Pressure dressing applied to site. Patient tolerated well. NOTE: TELE CLEANED AND RETURNED TO SIGN WRITER HAND
--- NOTE | 2019-02-08 14:26 | NUR ---
TAXI PATIENT UNABLE TO FIND TRANSPORTATION HOME, TAXI VOUCHER OBTAINED FROM [facility] CALLED AND ETA IS 14:40.
--- NOTE | 2019-02-08 14:40 | NUR ---
DISCHARGE/TAXI ARRIVAL Discharge instructions given as ordered. Encourage to follow up with PMD as instructed. All questions and concerns addressed. Patient verbalized understanding. Medication reconciliation form completed and copy given to patient. IV removed with catheter intact, pressure dressing applied. Telemetry unit returned to ICU. Patient taken to vehicle via wheelchair with all personal belongings, accompanied by staff members. No distress noted at time of departure.
== END 2019-02-08 14:20 | disposition home or self-care (01) | DRG 280 ==
LOC: EDBD 21:03 → ER 21:04 → TELE 21:05 → TELE-CENTR 02-04 08:40
PROVIDERS: ADMIT Nurse Practitioner; ATTEND Internal Medicine
DX: I21.A1 Myocardial infarction type 2 (principal); I50.43 Acute on chronic combined systolic (congestive) and diastolic (congestive) heart failure; I13.0 Hypertensive heart and chronic kidney disease with heart failure and stage 1 through stage 4 chronic kidney disease, or unspecified chronic kidney disease; I47.2 Ventricular tachycardia; C85.90 Non-Hodgkin lymphoma, unspecified, unspecified site; E87.6 Hypokalemia; J44.9 Chronic obstructive pulmonary disease, unspecified; N18.3 Chronic kidney disease, stage 3 (moderate); E78.5 Hyperlipidemia, unspecified; D69.6 Thrombocytopenia, unspecified; I25.10 Atherosclerotic heart disease of native coronary artery without angina pectoris; F17.210 Nicotine dependence, cigarettes, uncomplicated; I34.0 Nonrheumatic mitral (valve) insufficiency; Z82.3 Family history of stroke; Z82.49 Family history of ischemic heart disease and other diseases of the circulatory system; Z86.73 Personal history of transient ischemic attack (TIA), and cerebral infarction without residual deficits; Z95.5 Presence of coronary angioplasty implant and graft; Z83.3 Family history of diabetes mellitus; Z95.810 Presence of automatic (implantable) cardiac defibrillator; Z88.8 Allergy status to other drugs, medicaments and biological substances
CPT/HCPCS: 36415; 71045; 80048; 80053; 80061; 83735; 83880; 84132; 84484; 85007; 85027; 85379; 85610; 85730; 93005; G0378

== ENCOUNTER 2019-03-27 01:24 | Inpatient (IN) | payer OTHER, MEDICAID ==
[~2019-03-27] VITALS: Ht 190.5 cm; Wt 100.4 kg
[~2019-03-27 01:24] MED LIST changes: +GABA100C9 PO; +HYDR-4798 PO; -HYDR-4833 PO; +NALO4SPR2; +NITR0.4S29 SL
[2019-03-27 02:04] LABS: Hematocrit 42.6 % (41.0-53.0); Hemoglobin 14.4 g/dL (13.5-17.5); Mean Corpuscular Hemoglobin 33.6 pg (28.0-32.0); Mean Corpuscular Hgb Conc. 33.8 g/dL (32.0-36.0); Mean Corpuscular Volume 99.2 fL (80.0-100.0); Platelet Count (auto) 162 10^3/uL (140-450); Red Blood Cells 4.29 10^6/uL (4.5-5.90); Red Cell Distribution Width 19.2 % (11.8-14.3)
[2019-03-27 02:14] LABS: Basophils % (manual) 0 (0.0-2.0); Blast Cells 0; Eosinophils % (manual) 0 (0-7); Metamyelocytes % 0; Myelocytes % 0; Promyelocytes % 0
[2019-03-27 02:21] LABS: Potassium 3.3 mmol/L (3.5-5.1)
[2019-03-27 02:24] LABS: INR 0.98 (0.9-1.15); Partial Thromboplastin Time 26.6 sec (23.64-32.05)
[2019-03-27 02:26] LABS: Albumin 3.6 g/dL (3.4-5.0); BUN/Creatinine Ratio 8.4; Calcium 8.6 mg/dL (8.5-10.1)
[2019-03-27 02:30] LABS: Bilirubin, Total 0.5 mg/dL (0.2-1.0); Total Protein 7.3 g/dL (6.4-8.2)
[2019-03-27 02:49] LABS: Band Neutrophils % (manual) 3; Lymphocytes % (manual) 74 (10.0-50.0); Monocytes % (manual) 3 (0-12); Reactive Lymphocytes 3
[2019-03-27] MEDS ORDERED: ASPirin 81 mg TAB PO ONE (03:30)
[2019-03-27] MEDS ORDERED: ONDANSETRON HCL 4 MG/2 ML VIAL IV ONE (03:30)
[2019-03-27] MEDS ORDERED: NITROGLYCERIN 0.4 MG SL TAB SL ONE (03:30)
[2019-03-27] MEDS ORDERED: MORPHINE SULFATE 4 MG/ML SYR/VIAL IV ONE (03:30)
[2019-03-27] MEDS ORDERED: SODIUM CHLORIDE 0.9% 1,000 ML IV SCH (06:11)
[2019-03-27] MEDS ORDERED: MORPHINE SULF INJ 2 MG/ML SYRINGE 1ML IV PRN (06:15)
[2019-03-27] MEDS ORDERED: ONDANSETRON HCL 4 MG/2 ML VIAL IV PRN (06:15)
[2019-03-27] MEDS ORDERED: MORPHINE SULFATE 4 MG/ML SYR/VIAL IV PRN (06:15)
[2019-03-27] MEDS ORDERED: NITROGLYCERIN 0.4 MG SL TAB SL PRN ×2 (06:15)
[2019-03-27] MEDS ORDERED: LORazepam 0.5 MG TAB PO PRN (06:15)
[2019-03-27 09:50] VITALS: BP 143/77
[2019-03-27] MEDS ORDERED: METO-158 PO (10:05)
[2019-03-27] MEDS ORDERED: ISOS10TA2 PO (10:05)
[2019-03-27] MEDS ORDERED: TRAM50TA2 PO (10:05)
[2019-03-27] MEDS ORDERED: ASPI-404 PO (10:05)
[2019-03-27] MEDS ORDERED: FLUT1AER3 IN (10:05)
[2019-03-27] MEDS ORDERED: MAGN400C3 PO (10:05)
[2019-03-27] MEDS ORDERED: GABA100C9 PO (10:05)
[2019-03-27] MEDS ORDERED: FURO40TA4 PO (10:05)
[2019-03-27] MEDS ORDERED: APIX2.5T PO (10:05)
[2019-03-27] MEDS ORDERED: CHOL20007 OR (10:05)
[2019-03-27] MEDS ORDERED: DIAZ-104 PO (10:05)
[2019-03-27] MEDS ORDERED: AMIO200T33 PO (10:05)
[2019-03-27] MEDS ORDERED: ALBU108A5 IN (10:05)
[2019-03-27 12:30] VITALS: BP 130/94
[2019-03-27] MEDS: FUROSEMIDE 40 MG TAB PO SCH (13:03)
[2019-03-27] MEDS: CLOPIDOGREL BISULFATE 75 MG TAB PO SCH (13:03)
[2019-03-27] MEDS: amLODIPine BESYLATE 5 MG TAB PO SCH (13:03)
[2019-03-27] MEDS: METOPROLOL TARTRATE 50 MG TAB PO SCH ×2 (13:04→22:14)
[2019-03-27] MEDS: DOCUSATE SOD 100 MG CAP PO SCH (13:04)
[2019-03-27] MEDS: SPIRONOLACTONE 25 MG TAB PO SCH (13:05)
[2019-03-27] MEDS: ENOXAPARIN SOD 40 MG/0.4 ML SYRINGE SC SCH (13:05)
[2019-03-27] MEDS: ASPirin 81 mg TAB PO SCH (13:05)
[2019-03-27] MEDS: LOSARTAN POTASSIUM 25 MG TAB PO SCH (13:54)
[2019-03-27] MEDS: GABAPENTIN 100 MG CAP PO SCH ×2 (14:56→21:30)
[2019-03-27] MEDS ORDERED: LIDOCAINE 5% TOPICAL PATCH TOP ONE (15:30)
[2019-03-27 17:00] VITALS: BP 120/76
--- NOTE | 2019-03-27 19:20 | NUR ---
Opening Shift Note Received report from devante Kraus RN. Assumed care of patient, awake and alert. No S/S of distress/SOB or pain. Instructed on POC and to call for assist PRN, will continue to monitor for changes Q1hr and PRN. Bed placed in lowest position, bed alarm turned on and call light within reach.
--- NOTE | 2019-03-27 19:25 | NUR ---
INITIAL ASSESSMENT PATIENT IS ALERT AND ORIENTED, AMBULATORY TO THE BATHROOM SELF, NO DISTRESS NOTED, SATURATING AT 100% ON 2LNC. C/O PAIN TO SHOULDERS AND BACK PAIN, INTACT SKIN AND ABLE TO MAKE NEEDS KNOWN.
[2019-03-27 20:00] VITALS: BP 123/93
[2019-03-27] MEDS: ATORVASTATIN 20 MG TAB PO SCH (21:31)
[2019-03-27] MEDS: ZOLPIDEM TARTRATE 5 MG TAB PO PRN (21:31)
[2019-03-27 22:00] VITALS: BP 123/93
[2019-03-28 05:00] VITALS: BP 131/97
[2019-03-28] MEDS: GABAPENTIN 100 MG CAP PO SCH ×3 (05:48→22:13)
--- NOTE | 2019-03-28 06:13 | NUR ---
ROUNDS PATIENT IS ALERT AND ORIENTED, NO DISTRESS NOTED AND PATIENT DENIES ANY PAIN, STATES HE SLEPT ALL NIGHT, SATURATING AT 100% ON 2LNC BLOOD PRESSURE IS 131/97, PULSE IS 64, TEMP 98.1.
--- NOTE | 2019-03-28 07:40 | NUR ---
Opening Shift Note Assumed care of patient no signs or symptoms of distress/SOB or pain. Patient is alert and orientated x4. Patient is on safety precautions with the bed in lowest position and side rails up x2. Instructed patient on plan of care for today and to call for assist PRN. Will continue to monitor for changes Q1hr and PRN.
[2019-03-28 09:00] VITALS: BP 136/84
[2019-03-28] MEDS: SPIRONOLACTONE 25 MG TAB PO SCH (09:33)
[2019-03-28] MEDS: ASPirin 81 mg TAB PO SCH (09:33)
[2019-03-28] MEDS: DOCUSATE SOD 100 MG CAP PO SCH (09:34)
[2019-03-28] MEDS: FUROSEMIDE 40 MG TAB PO SCH (09:36)
[2019-03-28] MEDS: LOSARTAN POTASSIUM 25 MG TAB PO SCH (09:36)
[2019-03-28] MEDS: CLOPIDOGREL BISULFATE 75 MG TAB PO SCH (09:38)
[2019-03-28] MEDS: METOPROLOL TARTRATE 50 MG TAB PO SCH ×2 (09:38→22:14)
[2019-03-28] MEDS: amLODIPine BESYLATE 5 MG TAB PO SCH (09:38)
[2019-03-28] MEDS: LIDOCAINE 5% TOPICAL PATCH TOP SCH (09:39)
[2019-03-28] MEDS: ENOXAPARIN SOD 40 MG/0.4 ML SYRINGE SC SCH (09:39)
[2019-03-28 12:00] VITALS: BP 115/78
[2019-03-28 17:00] VITALS: BP 126/89
--- NOTE | 2019-03-28 19:20 | NUR ---
Opening Shift Note Received report from Cecelia BHATIA. Assumed care of patient, awake and alert. No S/S of distress/SOB or pain. Instructed on POC and to call for assist PRN, will continue to monitor for changes Q1hr and PRN.
[2019-03-28 22:00] VITALS: BP 125/95
[2019-03-28] MEDS: ATORVASTATIN 20 MG TAB PO SCH (22:13)
[2019-03-28] MEDS: ZOLPIDEM TARTRATE 5 MG TAB PO PRN (22:14)
[2019-03-29 05:52] VITALS: BP 113/79
[2019-03-29] MEDS: GABAPENTIN 100 MG CAP PO SCH ×2 (06:17→13:24)
--- NOTE | 2019-03-29 08:05 | NUR ---
Opening Shift Note Assumed care of patient, awake and alert. No S/S of distress/SOB. Patient reports 8/10 pain in his left shoulder. Will medicate the patient for pain per MD order. Instructed on POC and to call for assist PRN, will continue to monitor for changes Q1hr and PRN.
[2019-03-29 09:00] VITALS: BP 128/95
[2019-03-29] MEDS: ASPirin 81 mg TAB PO SCH (09:56)
[2019-03-29] MEDS: amLODIPine BESYLATE 5 MG TAB PO SCH (09:56)
[2019-03-29] MEDS: DOCUSATE SOD 100 MG CAP PO SCH (09:56)
[2019-03-29] MEDS: METOPROLOL TARTRATE 50 MG TAB PO SCH (09:56)
[2019-03-29] MEDS: CLOPIDOGREL BISULFATE 75 MG TAB PO SCH (09:57)
[2019-03-29] MEDS: FUROSEMIDE 40 MG TAB PO SCH (09:57)
[2019-03-29] MEDS: SPIRONOLACTONE 25 MG TAB PO SCH (09:57)
[2019-03-29] MEDS: LOSARTAN POTASSIUM 25 MG TAB PO SCH (09:57)
[2019-03-29] MEDS: LIDOCAINE 5% TOPICAL PATCH TOP SCH (09:58)
[2019-03-29] MEDS: ENOXAPARIN SOD 40 MG/0.4 ML SYRINGE SC SCH (09:58)
--- NOTE | 2019-03-29 10:11 | NUR ---
Dr. Gates at bedside with the patient discussing plan of care. Dr. Gates notified of patient's potassium level of 3.3. New orders received.
[2019-03-29] MEDS ORDERED: POTASSIUM CHL 20 Meq TABLET PO ONE (10:30)
[2019-03-29 11:17] VITALS: BP 128/95
[2019-03-29 13:00] VITALS: BP 126/95
--- NOTE | 2019-03-29 13:44 | NUR ---
Discharge instructions given as ordered. Encourage to follow up with PMD as instructed. All questions and concerns addressed. Patient verbalized understanding. Medication reconciliation form completed and copy given to patient. Home medications held in Pharmacy returned to patient. IV removed with catheter intact, pressure dressing applied. Telemetry unit returned to ICU. Patient taken to vehicle via wheelchair with all personal belongings, accompanied by staff and family member. No distress noted at time of departure.
== END 2019-03-29 13:44 | disposition home or self-care (01) | DRG 552 ==
LOC: EDBD 01:24 → EDUNIT# 01:24 → ER 01:27 → TELE 01:28 → TELE-CENTR 09:59
PROVIDERS: ADMIT Hospitalist; ATTEND Internal Medicine
DX: M48.02 Spinal stenosis, cervical region (principal); I42.9 Cardiomyopathy, unspecified; I50.22 Chronic systolic (congestive) heart failure; I13.0 Hypertensive heart and chronic kidney disease with heart failure and stage 1 through stage 4 chronic kidney disease, or unspecified chronic kidney disease; I24.9 Acute ischemic heart disease, unspecified; F11.20 Opioid dependence, uncomplicated; R07.89 Other chest pain; E11.22 Type 2 diabetes mellitus with diabetic chronic kidney disease; E87.6 Hypokalemia; F17.210 Nicotine dependence, cigarettes, uncomplicated; I07.1 Rheumatic tricuspid insufficiency; M54.9 Dorsalgia, unspecified; R59.1 Generalized enlarged lymph nodes; I25.10 Atherosclerotic heart disease of native coronary artery without angina pectoris; J44.9 Chronic obstructive pulmonary disease, unspecified; N18.3 Chronic kidney disease, stage 3 (moderate); Z79.899 Other long term (current) drug therapy; Z82.3 Family history of stroke; Z82.49 Family history of ischemic heart disease and other diseases of the circulatory system; Z83.3 Family history of diabetes mellitus; Z86.73 Personal history of transient ischemic attack (TIA), and cerebral infarction without residual deficits; Z87.442 Personal history of urinary calculi; Z95.810 Presence of automatic (implantable) cardiac defibrillator; Z95.5 Presence of coronary angioplasty implant and graft
CPT/HCPCS: 36415; 71045; 72125; 73200; 80053; 82962; 83880; 84484; 85007; 85027; 85610; 85730; 93005; 93926; 94761; 96372; 96374; 96375; G0378; J2405

== ENCOUNTER 2019-05-28 08:21 | Inpatient (IN) | payer OTHER, MEDICAID ==
[~2019-05-28] VITALS: Ht 190.5 cm; Wt 106.0 kg
[~2019-05-28 08:21] MED LIST changes: +ALBU108A5 IN; -ALBU2TAB4 PO; -AML5T PO; +APIX2.5T PO; +ASPI-404 PO; -BENZ100C97 PO; +CHOL20007 OR; +DIAZ5TAB PO; -FERR-20 PO; +FLUT1AER3 IN; -FOLITAB OR; +ISOS10TA2 PO; -ISOS20TA56 PO; +MAGN400C3 PO; +METO-158 PO; -NALO4SPR2; -POLY33504 PO; +TRAM50TA2 PO
[2019-05-28] MEDS ORDERED: cloNIDine HCL 0.1 MG TAB ONE (08:31)
[2019-05-28] MEDS ORDERED: cloNIDine HCL 0.1 MG TAB PO ONE (08:45)
[2019-05-28 09:57] LABS: Basophils # (auto) 0 uL; Eosinophils # (auto) 0.1 uL; Eosinophils % (auto) 1.1 % (0.0-7.0); Monocytes # (auto) 0.3 uL; Neutrophils # (auto) 3.1 uL; Nucleated Red Blood Cells % 0.1 %; White Blood Cell 6.1 10^3/uL (4.4-10.8)
[2019-05-28 09:59] LABS: Basophils % (auto) 0.4 % (0.0-2.0); Hematocrit 35.2 % (41.0-53.0); Hemoglobin 11.7 g/dL (13.5-17.5); Lymphocytes # (auto) 2.7 uL; Lymphocytes % (auto) 44.1 % (10.0-50.0); Mean Corpuscular Hemoglobin 34.7 pg (28.0-32.0); Mean Corpuscular Hgb Conc. 33.2 g/dL (32.0-36.0); Mean Corpuscular Volume 104.7 fL (80.0-100.0); Monocytes % (auto) 4.2 % (0.0-12.0); Neutrophils % (auto) 50.2 % (37.0-80.0); Platelet Count (auto) 173 10^3/uL (140-450); Red Blood Cells 3.36 10^6/uL (4.5-5.90)
[2019-05-28 10:17] LABS: Albumin 3.3 g/dL (3.4-5.0); Potassium 3.7 mmol/L (3.5-5.1)
[2019-05-28 10:22] LABS: BUN/Creatinine Ratio 8.7; Bilirubin, Total 1.1 mg/dL (0.2-1.0)
[2019-05-28] MEDS ORDERED: ASPirin 81 mg TAB PO ONE (11:00)
[2019-05-28] MEDS ORDERED: ONDANSETRON HCL 4 MG/2 ML VIAL IV PRN (16:15)
[2019-05-28] MEDS ORDERED: NITROGLYCERIN 0.4 MG SL TAB SL PRN (16:15)
[2019-05-28 18:03] LABS: CRP High Sensitivity 2.05 mg/dL (< 0.3)
[2019-05-28] MEDS: ISOSORBIDE DINITRATE 10 MG TAB PO SCH (18:15)
--- NOTE | 2019-05-28 18:30 | NUR ---
Telemetry admit from ER YUE MEZA admitted to Telemetry unit. Patient oriented to PABLO MADISON RN primary RN, unit, room, bed, and unit policies regarding patient care and visiting hours. Patient now on continuous telemetry monitoring, tele box #12. Patient encouraged to call if they need something. All questions and concerns addressed, patient verbalized understanding.
[2019-05-28] MEDS: HYDROcodone-ACET 5/325MG TAB PO PRN (18:53)
--- NOTE | 2019-05-28 19:30 | NUR ---
RT NOTE PT WAS SEEN BY RT FOR PRN HHN ASSESSMENT. PT IS SLEEPING BUT EASILY AWAKENED. HR 725, RR 16, BS CLEAR/DIM, POX 95% ON 2L NASAL CANNULA. NO SOB OR DISTRESS NOTED. PT AWARE TO CALL IF TX NEEDED. CONT ORDERED Addendum: 05/28/19 at 2325 by Bernarda Diamond RT Amended: Links added.
--- NOTE | 2019-05-28 19:31 | NUR ---
Care endorsed Endorsed care to Night RN Angle. Patient resting in bed, no distress, sob, or pain noted at this time.
[2019-05-28 22:00] VITALS: BP 126/79
[2019-05-28] MEDS: APIXABAN 2.5 MG TAB PO SCH (22:00)
[2019-05-28] MEDS: GABAPENTIN 100 MG CAP PO SCH (22:12)
[2019-05-28] MEDS: METOPROLOL TARTRATE 25 MG TAB PO SCH (22:13)
[2019-05-28] MEDS: SACUBITRIL-VALSARTAN 24mg/26mg TAB PO SCH (22:13)
[2019-05-28] MEDS: MEXILETINE HYDROCHLORIDE 150 MG CAP PO SCH (22:13)
[2019-05-28] MEDS: ACETAMINOPHEN 500 MG TAB PO PRN (22:14)
--- NOTE | 2019-05-28 22:20 | NUR ---
NOSEBLEED PATIENT WOKE UP WITH A NOSE BLEED, MOD AMOUNT OF DARK RED BLOOD NOTED. PLACED OXYGEN ON TO A HUMIDIFIER. ELIQUIS HELD AT THIS TIME.
[2019-05-28 23:19] VITALS: BP 126/79
[2019-05-29] MEDS: HYDROcodone-ACET 5/325MG TAB PO PRN ×2 (01:55→08:03)
[2019-05-29 05:00] VITALS: BP 109/75
[2019-05-29] MEDS: IPRATROPIUM BROM 0.5 MG/2.5ML INH SOL NEB PRN ×3 (06:03→18:40)
[2019-05-29] MEDS: ALBUTEROL SULF 2.5 MG/0.5ML(0.5%) NEB SOLN NEB PRN ×3 (06:03→18:40)
[2019-05-29] MEDS: GABAPENTIN 100 MG CAP PO SCH ×3 (06:19→22:28)
[2019-05-29] MEDS: ISOSORBIDE DINITRATE 10 MG TAB PO SCH ×3 (06:19→18:07)
[2019-05-29] MEDS: MEXILETINE HYDROCHLORIDE 150 MG CAP PO SCH ×3 (06:19→22:28)
--- NOTE | 2019-05-29 07:15 | NUR ---
Opening Shift Note Assumed care of patient, awake and alert. No S/S of distress/SOB. Patient states he has a headache and is requesting norco, however there is no pain medications due at this time. Patient encouraged to close eyes and will turn lights off for comfort until pain medication is due. Instructed on POC and to call for assist PRN, will continue to monitor for changes Q1hr and PRN. Fall precautions in place per safety protocol.
[2019-05-29 07:47] LABS: Hematocrit 31.4 % (41.0-53.0); Hemoglobin 10.6 g/dL (13.5-17.5); Mean Corpuscular Hemoglobin 35.4 pg (28.0-32.0); Mean Corpuscular Hgb Conc. 33.9 g/dL (32.0-36.0); Mean Corpuscular Volume 104.4 fL (80.0-100.0); Platelet Count (auto) 152 10^3/uL (140-450); Red Blood Cells 3.01 10^6/uL (4.5-5.90); Red Cell Distribution Width 15.1 % (11.8-14.3); White Blood Cell 6.6 10^3/uL (4.4-10.8)
[2019-05-29 07:50] LABS: Band Neutrophils % (manual) 0; Basophils % (manual) 0 (0.0-2.0); Blast Cells 0; Metamyelocytes % 0; Myelocytes % 0; Promyelocytes % 0
[2019-05-29 07:51] LABS: Calcium 8.6 mg/dL (8.5-10.1); Potassium 3.7 mmol/L (3.5-5.1)
[2019-05-29 08:55] LABS: Eosinophils % (manual) 2 (0-7); Lymphocytes % (manual) 48 (10.0-50.0); Monocytes % (manual) 3 (0-12); Reactive Lymphocytes 6
[2019-05-29 09:00] VITALS: BP 108/73
[2019-05-29] MEDS ORDERED: FUROSEMIDE 20 MG TAB PO SCH (10:00)
[2019-05-29] MEDS: APIXABAN 2.5 MG TAB PO SCH ×2 (10:22→22:27)
[2019-05-29] MEDS: SACUBITRIL-VALSARTAN 24mg/26mg TAB PO SCH ×2 (10:22→22:27)
[2019-05-29] MEDS: FAMOTIDINE 20 MG TAB PO SCH (10:23)
[2019-05-29] MEDS: METOPROLOL TARTRATE 25 MG TAB PO SCH ×2 (10:23→22:27)
[2019-05-29 13:00] VITALS: BP 134/97
--- NOTE | 2019-05-29 14:30 | NUR ---
Hospitalist at bedside. MD Valerio at bedside, aware of patient status. Per MD Valerio, she will adjust medications accordingly. Will cont to monitor patient.
[2019-05-29] MEDS ORDERED: AZITHROMYCIN 250 MG TAB PO ONE (14:45)
[2019-05-29 15:43] LABS: Urine Bacteria NONE SEEN /hpf (None Seen); Urine Blood Negative /uL (Negative); Urine Hyaline Cast FEW /lpf (0 - 2); Urine Specific Gravity 1.025 (1.001-1.035); Urine WBC 1 /hpf (0 - 3)
[2019-05-29 15:49] LABS: Alcohol, Urine < 3.0 mg/dL (0-5); Amphetamine Screen, Urine POSITIVE (NEGATIVE); Barbiturate Scree,Urine NEGATIVE (NEGATIVE); Benzodiazephine Screen, Urine NEGATIVE (NEGATIVE); Cannabinoid Screen, Urine NEGATIVE (NEGATIVE); Cocaine Screen, Urine NEGATIVE (NEGATIVE); Opiate Scree,Urine POSITIVE (NEGATIVE); Phencyclidine Screen, Urine NEGATIVE (NEGATIVE)
[2019-05-29 17:00] VITALS: BP 144/106
--- NOTE | 2019-05-29 18:40 | NUR ---
RT NOTE: RT PAGED FOR BREATHING TX. PT ASSESSED FOR PRN TX. SPO2 96% ON 2L NASAL CANNULA, HR 74, RR 22, DIMINISHED BS. TX NOT INDICATED, BUT PT STATED HE WAS FEELING SOB. TX GIVEN WITH NO ADVERSE REACTIONS. WILL CONT TO MONITOR.
--- NOTE | 2019-05-29 19:13 | NUR ---
Care endorsed Endorsed care to Night RN Angle. Patient resting in bed, no distress, sob, or pain noted at this time.
[2019-05-29] MEDS: guaiFENesin-CODEINE Liq 5 ML UD PO PRN (19:48)
[2019-05-29 22:00] VITALS: BP 117/82
[2019-05-30] MEDS: IPRATROPIUM BROM 0.5 MG/2.5ML INH SOL NEB PRN ×3 (00:52→18:15)
[2019-05-30] MEDS: ALBUTEROL SULF 2.5 MG/0.5ML(0.5%) NEB SOLN NEB PRN ×3 (00:52→18:15)
--- NOTE | 2019-05-30 00:52 | NUR ---
RT NOTE: RT PAGED FOR BREATHING TX. PT ASSESSED FOR PRN TX. SPO2 96% ON 2L NASAL CANNULA, HR 68, RR 20, DIMINISHED BS. TX GIVEN WITH NO ADVERSE REACTIONS. WILL CONT TO MONITOR.
[2019-05-30] MEDS: guaiFENesin-CODEINE Liq 5 ML UD PO PRN ×3 (01:03→20:23)
[2019-05-30 05:00] VITALS: BP 129/84
--- NOTE | 2019-05-30 05:17 | NUR ---
RT AT BEDSIDE FOR PRN BREATHING TREATMENT. PATIENT REPORTED SOB AFTER AMBULATING TO THE BATHROOM.
[2019-05-30] MEDS: ISOSORBIDE DINITRATE 10 MG TAB PO SCH ×3 (06:30→18:56)
[2019-05-30] MEDS: GABAPENTIN 100 MG CAP PO SCH ×3 (06:30→21:58)
[2019-05-30] MEDS: MEXILETINE HYDROCHLORIDE 150 MG CAP PO SCH ×3 (06:30→21:58)
--- NOTE | 2019-05-30 07:30 | NUR ---
Assumed care of patient, awake and alert. No S/S of distress/SOB. Patient reports 6/10 generalized pain, tylenol given, requesting norco but medication is not due at this time. Patient encouraged to find position of comfort until pain medication is due. Patient Instructed on POC and to call for assist PRN, will continue to monitor for changes Q1hr and PRN. Fall precautions in place per safety protocol.
[2019-05-30 09:00] VITALS: BP 114/78
[2019-05-30] MEDS: FAMOTIDINE 20 MG TAB PO SCH (10:13)
[2019-05-30] MEDS: SACUBITRIL-VALSARTAN 24mg/26mg TAB PO SCH ×2 (10:14→21:57)
[2019-05-30] MEDS: METOPROLOL TARTRATE 25 MG TAB PO SCH ×2 (10:15→21:58)
[2019-05-30] MEDS: ACETAMINOPHEN 500 MG TAB PO PRN ×2 (10:15→20:23)
[2019-05-30] MEDS: AZITHROMYCIN 250 MG TAB PO SCH (10:16)
[2019-05-30] MEDS: APIXABAN 2.5 MG TAB PO SCH ×2 (10:16→21:57)
[2019-05-30] MEDS: FUROSEMIDE 40 MG/4 ML VIAL IV SCH (10:17)
[2019-05-30 13:00] VITALS: BP 124/72
[2019-05-30 17:19] VITALS: BP 117/84
--- NOTE | 2019-05-30 18:15 | NUR ---
RT NOTE: RT PAGED FOR PRN BREATHING TX. PT ASSESSED FOR PRN TX. SPO2 94% ON 2L NASAL CANNULA, HR 74, RR 26, CLEAR/DIMINISHED BS. PT COMPLAINING OF SOB. TX GIVEN WITH NO ADVERSE REACTIONS. WILL CONT TO MONITOR.
[2019-05-30] MEDS: HYDROcodone-ACET 5/325MG TAB PO PRN (18:57)
--- NOTE | 2019-05-30 19:50 | NUR ---
Opening Shift Note Assumed care of patient, awake and, AAOx4. No S/S of distress/SOB. C/O pain to back of neck 11/08. On 2L oxygen via nasal cannula. Bed in lowest locked position, side rails up x2, call light within reach. Instructed on POC and to call for assist PRN, will continue to monitor for changes Q1hr and PRN.
--- NOTE | 2019-05-30 20:45 | NUR ---
ELEVATED TEMPERATURE 100.7 INITIATED COOLING MEASURES, ICE PACKS PLACED AND MEDICATION GIVEN. PATIENT IS RESTING IN BED, NO ACUTE S/S OF DISTRESS NOTED. REASSESSED TEMPERATURE READING 99.0. WILL CONTINUE TO MONITOR AND CONTINUE CARE.
[2019-05-30 22:00] VITALS: BP 134/99
[2019-05-31] MEDS: guaiFENesin-CODEINE Liq 5 ML UD PO PRN ×2 (00:35→06:05)
[2019-05-31 04:44] VITALS: BP 119/85
[2019-05-31] MEDS: MEXILETINE HYDROCHLORIDE 150 MG CAP PO SCH ×3 (05:57→22:24)
[2019-05-31] MEDS: ISOSORBIDE DINITRATE 10 MG TAB PO SCH ×3 (05:57→18:36)
[2019-05-31] MEDS: GABAPENTIN 100 MG CAP PO SCH ×3 (05:57→22:24)
[2019-05-31] MEDS ORDERED: ALBUTEROL MEDNEB 2.5 mg/3ml NEB ONE ×2 (06:06→10:13)
[2019-05-31] MEDS: ALBUTEROL SULF 2.5 MG/0.5ML(0.5%) NEB SOLN NEB PRN ×2 (06:13→10:17)
[2019-05-31] MEDS: IPRATROPIUM BROM 0.5 MG/2.5ML INH SOL NEB PRN ×2 (06:13→10:17)
[2019-05-31 07:21] LABS: % Iron Saturation 5.1 % (20-55)
--- NOTE | 2019-05-31 07:30 | NUR ---
Assumed care of patient, awake, alert and oriented x4. Patient is resting in bed but reports 8/10 mostly headache at this time. On 2L oxygen via nasal cannula. Bed in lowest locked position, side rails up x2, call light within reach. Instructed on POC and to call for assist PRN, will continue to monitor for changes Q1hr and PRN.
[2019-05-31 09:00] VITALS: BP 112/78
[2019-05-31 09:45] LABS: Ferritin 102.5 ng/mL (10-322)
[2019-05-31] MEDS: AZITHROMYCIN 250 MG TAB PO SCH (10:03)
[2019-05-31] MEDS: SACUBITRIL-VALSARTAN 24mg/26mg TAB PO SCH ×2 (10:03→22:24)
[2019-05-31] MEDS: FUROSEMIDE 40 MG/4 ML VIAL IV SCH (10:03)
[2019-05-31] MEDS: APIXABAN 2.5 MG TAB PO SCH ×2 (10:04→22:23)
[2019-05-31] MEDS: HYDROcodone-ACET 5/325MG TAB PO PRN (10:04)
[2019-05-31] MEDS: FAMOTIDINE 20 MG TAB PO SCH (10:04)
[2019-05-31] MEDS: METOPROLOL TARTRATE 25 MG TAB PO SCH ×2 (10:05→22:27)
[2019-05-31 10:35] LABS: Folate (Folic Acid) 9.67 ng/mL (5.38-24)
--- NOTE | 2019-05-31 11:38 | NUR ---
Nutrition Assessment Notes please see attached link for complete assessment Est. Needs based on ABW (99 kg): 2277-2475kcal (23-25 kcal/kgBW), 79-99 gms pro (0.8-1.0 gms/kgBW r/t elev RFT). Will continue to monitor pertinent labs and reassess nutrient need prn Addendum: 05/31/19 at [address] Ordoñ[address] RD Amended: Links added.
[2019-05-31] MEDS ORDERED: IRON SUCROSE COMPLEX 200 MG in SODIUM CHL 0.9% 100 ML IV SCH (12:49)
[2019-05-31 13:00] VITALS: BP 112/78
--- NOTE | 2019-05-31 13:27 | NUR ---
Received Social Service consult regarding Substance abuse Recovery/rehabilitation. Provided pt with information on Resources. Explained the various organizations and facilities that are available for treatment. Explained that most of them are free. They are located all over the [facility]. Pt verbalized understanding the resources. Gave packet to pt.
[2019-05-31] MEDS: CYANOCOBALAMIN 500 MCG TAB PO SCH (13:45)
[2019-05-31 17:00] VITALS: BP 121/87
[2019-05-31] MEDS: FOLIC ACID 1 MG TAB PO SCH (18:34)
--- NOTE | 2019-05-31 18:45 | NUR ---
ELEVATED TEMPERATURE 100.9 COOLING MEASURES INITIATED, ICE PACKS PLACED AND MEDICATION GIVEN. PATIENT IS RESTING IN BED, NO ACUTE S/S OF DISTRESS NOTED. REASSESSED TEMPERATURE READING 99.8. WILL CONTINUE TO MONITOR AND CONTINUE CARE.
[2019-05-31] MEDS: ACETAMINOPHEN 500 MG TAB PO PRN (18:52)
--- NOTE | 2019-05-31 19:30 | NUR ---
Respiratory note: ROUTINE PRN MN TX CHECK. HR 65, RR 16, POX 96% ON 2L NC, BREATH SOUNDS ARE CLEAR. NO SOB OR DISTRESS NOTED. PT WAS NOTIFY TO HAVE RT PAGE FOR MN TX.
--- NOTE | 2019-05-31 19:43 | NUR ---
RECEIVED PATIENT FROM DAY SHIFT RN. PATIENT RESTING IN BED. NO S/S OF DISTRESS NOTED. DENIED PAIN FOR NOW. REASSESSED TEMP 100. COOLING MEASURE CONTINUED. NO IV ACCESS AT THIS TIME. WILL TRY IT LATER. POC INSTRUCTED AND ENCOURAGED PATIENT TO CALL FOR SAFE AND VAULT MECHANIC IF NEEDED. BED IN LOWEST POSITION WITH SIDE RAILS UP X 2. CALL [facility] WITHIN REACH. ALARM ON . CONTINUE TO MONITOR FOR CHANGES Q1H AND PRN.
[2019-05-31] MEDS: SODIUM FERR GLUC 62.5MG/5ML 125 MG in SODIUM CHL 0.9% 100 ML IV SCH (20:59)
--- NOTE | 2019-05-31 21:00 | NUR ---
IV insertion IV access obtained, via clean sterile technique by inserting [20] gauge catheter at [LFA] after [1] attempt(s). IV secured properly. No trauma to site. Patient tolerated well. NOTE: []
[2019-05-31 22:00] VITALS: BP 108/70
[2019-05-31] MEDS: DOXYCYCLINE 100 MG TAB/CAP PO SCH (22:24)
--- NOTE | 2019-06-01 00:36 | NUR ---
PATIENT WALKED TO BATHROOM AND BACK TO BED WITH STEADY GAIT. NO S/S OF DISTRESS NOTED. CONTINUE CARE.
--- NOTE | 2019-06-01 01:02 | NUR ---
RT PAGED FOR BREATHING TREATMENT. CONTINUE TO MONITOR.
--- NOTE | 2019-06-01 01:14 | NUR ---
RT AT BEDSIDE
[2019-06-01] MEDS: IPRATROPIUM BROM 0.5 MG/2.5ML INH SOL NEB PRN ×3 (01:18→19:30)
[2019-06-01] MEDS: ALBUTEROL SULF 2.5 MG/0.5ML(0.5%) NEB SOLN NEB PRN ×3 (01:18→19:30)
[2019-06-01 01:25] VITALS: BP 108/70
[2019-06-01] MEDS: HYDROcodone-ACET 5/325MG TAB PO PRN ×3 (04:59→22:44)
[2019-06-01 05:00] VITALS: BP 130/87
[2019-06-01] MEDS: MEXILETINE HYDROCHLORIDE 150 MG CAP PO SCH ×3 (06:11→22:44)
[2019-06-01] MEDS: GABAPENTIN 100 MG CAP PO SCH ×3 (06:11→22:44)
[2019-06-01] MEDS: ISOSORBIDE DINITRATE 10 MG TAB PO SCH ×3 (06:11→18:34)
--- NOTE | 2019-06-01 08:00 | NUR ---
Opening Shift Note Assumed care of patient, awake and alert. No S/S of distress/SOB or pain. Instructed on POC and to call for assist PRN, will continue to monitor for changes Q1hr and PRN.
[2019-06-01 08:06] LABS: Immunoglobulin G, Serum 1440 mg/dL (700-1600)
[2019-06-01 08:32] LABS: Basophils # (auto) 0 uL; Eosinophils # (auto) 0 uL; Hemoglobin 9.9 g/dL (13.5-17.5); Neutrophils # (auto) 4.2 uL; Platelet Count (auto) 176 10^3/uL (140-450)
[2019-06-01 08:34] LABS: Basophils % (auto) 0.3 % (0.0-2.0); Eosinophils % (auto) 0.8 % (0.0-7.0); Hematocrit 29.4 % (41.0-53.0); Lymphocytes # (auto) 1.4 uL; Lymphocytes % (auto) 22.7 % (10.0-50.0); Mean Corpuscular Hemoglobin 35.1 pg (28.0-32.0); Mean Corpuscular Hgb Conc. 33.7 g/dL (32.0-36.0); Mean Corpuscular Volume 104.1 fL (80.0-100.0); Monocytes # (auto) 0.6 uL; Monocytes % (auto) 9.5 % (0.0-12.0); Neutrophils % (auto) 66.7 % (37.0-80.0); Red Blood Cells 2.82 10^6/uL (4.5-5.90); Red Cell Distribution Width 14.6 % (11.8-14.3); White Blood Cell 6.4 10^3/uL (4.4-10.8)
[2019-06-01 08:50] LABS: BUN/Creatinine Ratio 12.3; Calcium 8.8 mg/dL (8.5-10.1)
[2019-06-01 09:00] VITALS: BP 131/80
[2019-06-01] MEDS: FUROSEMIDE 40 MG/4 ML VIAL IV SCH (10:19)
[2019-06-01] MEDS: APIXABAN 2.5 MG TAB PO SCH (10:19)
[2019-06-01] MEDS: FAMOTIDINE 20 MG TAB PO SCH (10:20)
[2019-06-01] MEDS: SACUBITRIL-VALSARTAN 24mg/26mg TAB PO SCH ×2 (10:20→22:43)
[2019-06-01] MEDS: METOPROLOL TARTRATE 25 MG TAB PO SCH ×2 (10:20→22:44)
[2019-06-01] MEDS: FOLIC ACID 1 MG TAB PO SCH (10:21)
[2019-06-01] MEDS: CYANOCOBALAMIN 500 MCG TAB PO SCH (10:21)
[2019-06-01] MEDS: DOXYCYCLINE 100 MG TAB/CAP PO SCH (10:21)
[2019-06-01] MEDS ORDERED: LEVOFLOXACIN 500MG 100 ML IV ONE (12:00)
[2019-06-01 13:00] VITALS: BP 112/73
[2019-06-01] MEDS: SODIUM FERR GLUC 62.5MG/5ML 125 MG in SODIUM CHL 0.9% 100 ML IV SCH (14:00)
[2019-06-01] MEDS: guaiFENesin-CODEINE Liq 5 ML UD PO PRN (16:44)
[2019-06-01 17:00] VITALS: BP 118/79
--- NOTE | 2019-06-01 19:17 | NUR ---
RECEIVED PATIENT FROM DAY SHIFT RN. PATIENT RESTING IN BED. NO S/S OF DISTRESS NOTED. DENIED PAIN FOR NOW. PATIENT STILL COUGH A LOT. WILL COME BACK FOR COUGH MEDICATION LATER WHEN THE TIME IS DUE. PATIENT VERBALIZED UNDERSTANDING. POC INSTRUCTED AND ENCOURAGED PATIENT TO CALL FOR BASKET ASSEMBLER IF NEEDED. BED IN LOWEST POSITION WITH SIDE RAILS UP X 2. CALL [facility] WITHIN REACH. ALARM ON . CONTINUE TO MONITOR FOR CHANGES Q1H AND PRN.
--- NOTE | 2019-06-01 21:56 | NUR ---
REINFORCED PATIENT THE IMPORTANCE OF FLUID RESTRICTION. PATIENT VERBALIZED UNDERSTANDING. CONTINUE TO MONITOR.
[2019-06-01 22:00] VITALS: BP 113/75
--- NOTE | 2019-06-01 22:56 | NUR ---
MEDICATED PATIENT FOR PAIN @ 01/08. CONTINUE TO MONITOR.
--- NOTE | 2019-06-02 00:08 | NUR ---
RT PAGED FOR BREATHING TREATMENT.
--- NOTE | 2019-06-02 00:13 | NUR ---
RT AT BEDSIDE
[2019-06-02] MEDS: IPRATROPIUM BROM 0.5 MG/2.5ML INH SOL NEB PRN ×2 (00:22→17:40)
[2019-06-02] MEDS: ALBUTEROL SULF 2.5 MG/0.5ML(0.5%) NEB SOLN NEB PRN ×2 (00:22→17:40)
--- NOTE | 2019-06-02 02:14 | NUR ---
PATENT SLEEPING. NO S/S OF DISTRESS NOTED. CONTINUE CARE.
[2019-06-02 05:00] VITALS: BP 118/81
--- NOTE | 2019-06-02 05:27 | NUR ---
CXR BEDSIDE DONE
[2019-06-02] MEDS: MEXILETINE HYDROCHLORIDE 150 MG CAP PO SCH ×3 (06:10→22:39)
[2019-06-02] MEDS: ISOSORBIDE DINITRATE 10 MG TAB PO SCH ×3 (06:10→17:50)
[2019-06-02] MEDS: GABAPENTIN 100 MG CAP PO SCH ×3 (06:11→22:26)
[2019-06-02] MEDS: HYDROcodone-ACET 5/325MG TAB PO PRN (06:11)
--- NOTE | 2019-06-02 08:00 | NUR ---
Opening Shift Note Assumed care of patient, awake and alert. No S/S of distress/SOB, 4/10 anterior chest wall pain and back pain that gets worse when coughing. Instructed on POC and to call for assist PRN, will continue to monitor for changes Q1hr and PRN.
--- NOTE | 2019-06-02 08:23 | NUR ---
Respiratory note: ASSESSED PT FOR PRN TX PT WAS AWAKE AND ALERT, NO RESP DISTRESS NOTED. HR 78, RR 20, SPO2 95% ON 4L N/C. BS ARE CLEAR, NO INDICATION FOR TX AT THIS TIME. PATIENT KNOWS TO HAVE RT PAGED IF TX IS NEEDED.
[2019-06-02 09:00] VITALS: BP 114/71
[2019-06-02] MEDS: FUROSEMIDE 40 MG/4 ML VIAL IV SCH ×2 (09:23→17:50)
[2019-06-02] MEDS: FAMOTIDINE 20 MG TAB PO SCH (09:24)
[2019-06-02] MEDS: LEVOFLOXACIN 500MG 100 ML IV SCH (09:24)
[2019-06-02] MEDS: FOLIC ACID 1 MG TAB PO SCH (09:24)
[2019-06-02] MEDS: SACUBITRIL-VALSARTAN 24mg/26mg TAB PO SCH ×2 (09:25→22:26)
[2019-06-02] MEDS: METOPROLOL TARTRATE 25 MG TAB PO SCH ×2 (09:25→22:26)
[2019-06-02] MEDS: CYANOCOBALAMIN 500 MCG TAB PO SCH (09:25)
--- NOTE | 2019-06-02 11:17 | NUR ---
PT Patient refused to be OOB during PT visit and stated that he is not feeling good but wanted to comeback tomorrow. Addendum: 06/02/19 at 1119 by HILARIA PARK PTT Amended: Links added.
[2019-06-02] MEDS: SODIUM FERR GLUC 62.5MG/5ML 125 MG in SODIUM CHL 0.9% 100 ML IV SCH (12:31)
[2019-06-02 13:00] VITALS: BP 109/78
[2019-06-02 17:00] VITALS: BP 113/72
--- NOTE | 2019-06-02 19:55 | NUR ---
Opening Shift Note Assumed care of patient, awake and alert. No S/S of distress/SOB. Instructed on POC and to call for assist PRN, will continue to monitor for changes Q1hr and PRN.Patient complain of chest pain, ekg done abnormal. Offer nitro but patient refused because of headache sides effects, wanted morphine instead. patient on 4l nasal canula.
[2019-06-02 20:00] VITALS: BP 114/76
[2019-06-02] MEDS: MORPHINE SULF INJ 2 MG/ML SYRINGE 1ML IV PRN (20:30)
--- NOTE | 2019-06-02 20:30 | NUR ---
Patient is no longer in pain.
[2019-06-02 22:00] VITALS: BP 114/76
--- NOTE | 2019-06-03 | NUR ---
PT C/O CHEST PAIN, REFUSED NITRO, STATES HE CANT STAND THE HEADACHE, EDUCATED PT ON RATIONALE FOR NITRO, STATED HE WILL TELL ME IF HE NEED IT, RESPECTED PT WISHES, EKG DONE , MORPHINE GIVEN PER PROTOCOL, NOTIFIED DR BROWNLEE NO NEW ORDERS GIVEN. WILL CONTINUE TO CLOSELY MONITOR PT. AV PACED ON MONITOR
[2019-06-03 04:30] VITALS: BP 110/76
[2019-06-03] MEDS: FUROSEMIDE 40 MG/4 ML VIAL IV SCH ×2 (06:08→17:42)
[2019-06-03] MEDS: MEXILETINE HYDROCHLORIDE 150 MG CAP PO SCH ×2 (06:08→15:46)
[2019-06-03] MEDS: ISOSORBIDE DINITRATE 10 MG TAB PO SCH ×3 (06:08→17:43)
[2019-06-03] MEDS: GABAPENTIN 100 MG CAP PO SCH ×3 (06:09→20:54)
[2019-06-03] MEDS: IPRATROPIUM BROM 0.5 MG/2.5ML INH SOL NEB PRN ×2 (06:27→11:14)
[2019-06-03] MEDS: ALBUTEROL SULF 2.5 MG/0.5ML(0.5%) NEB SOLN NEB PRN ×2 (06:27→11:14)
[2019-06-03 09:00] VITALS: BP 125/79
--- NOTE | 2019-06-03 09:00 | NUR ---
Received a call from Rosario BHATIAdepartment store general manager, instructions received to hold blood thinners, FNA of the thyroid nodules will be done on Thursday. Will continue care.
[2019-06-03] MEDS: LEVOFLOXACIN 500MG 100 ML IV SCH (09:26)
[2019-06-03] MEDS: FAMOTIDINE 20 MG TAB PO SCH (09:27)
[2019-06-03] MEDS: METOPROLOL TARTRATE 25 MG TAB PO SCH ×2 (09:27→20:48)
[2019-06-03] MEDS: SACUBITRIL-VALSARTAN 24mg/26mg TAB PO SCH ×2 (09:28→20:48)
[2019-06-03] MEDS: FOLIC ACID 1 MG TAB PO SCH (09:29)
[2019-06-03] MEDS: CYANOCOBALAMIN 500 MCG TAB PO SCH (09:29)
[2019-06-03] MEDS: SODIUM FERR GLUC 62.5MG/5ML 125 MG in SODIUM CHL 0.9% 100 ML IV SCH (12:49)
[2019-06-03 12:52] VITALS: BP 105/71
[2019-06-03] MEDS: cefTRIAXone 1GM/50ML D5W 50 ML IV SCH (15:46)
[2019-06-03 15:59] LABS: Basophils # (auto) 0 uL; Basophils % (auto) 0.2 % (0.0-2.0); Hemoglobin 10.5 g/dL (13.5-17.5); Monocytes # (auto) 0.2 uL; Neutrophils # (auto) 4.1 uL
[2019-06-03 16:01] LABS: Eosinophils # (auto) 0.1 uL; Eosinophils % (auto) 2.2 % (0.0-7.0); Hematocrit 31.9 % (41.0-53.0); Lymphocytes # (auto) 1.6 uL; Lymphocytes % (auto) 26.9 % (10.0-50.0); Mean Corpuscular Hemoglobin 34.4 pg (28.0-32.0); Mean Corpuscular Volume 104.2 fL (80.0-100.0); Monocytes % (auto) 3.5 % (0.0-12.0); Neutrophils % (auto) 67.2 % (37.0-80.0); Nucleated Red Blood Cells % 0.2 %; Platelet Count (auto) 220 10^3/uL (140-450); Red Blood Cells 3.06 10^6/uL (4.5-5.90); Red Cell Distribution Width 14.9 % (11.8-14.3); White Blood Cell 6.1 10^3/uL (4.4-10.8)
[2019-06-03 16:15] LABS: Calcium 9.2 mg/dL (8.5-10.1); Potassium 3.8 mmol/L (3.5-5.1)
[2019-06-03 16:45] VITALS: BP 114/64
[2019-06-03] MEDS: MORPHINE SULF INJ 2 MG/ML SYRINGE 1ML IV PRN ×2 (20:37→21:15)
[2019-06-03] MEDS: guaiFENesin-CODEINE Liq 5 ML UD PO PRN (20:47)
[2019-06-03 21:54] VITALS: BP 130/89
[2019-06-03] MEDS: HYDROcodone-ACET 5/325MG TAB PO PRN (23:31)
[2019-06-04 05:08] VITALS: BP 119/81
[2019-06-04] MEDS: ISOSORBIDE DINITRATE 10 MG TAB PO SCH ×3 (06:00→17:54)
[2019-06-04] MEDS: MEXILETINE HYDROCHLORIDE 150 MG CAP PO SCH ×3 (06:00→22:32)
[2019-06-04] MEDS: GABAPENTIN 100 MG CAP PO SCH ×3 (06:39→22:00)
[2019-06-04] MEDS: FUROSEMIDE 40 MG/4 ML VIAL IV SCH ×2 (06:41→17:54)
[2019-06-04] MEDS: IPRATROPIUM BROM 0.5 MG/2.5ML INH SOL NEB PRN (06:53)
[2019-06-04] MEDS: ALBUTEROL SULF 2.5 MG/0.5ML(0.5%) NEB SOLN NEB PRN (06:53)
--- NOTE | 2019-06-04 06:56 | NUR ---
Respiratory note: PATIENT ASSESSED FOR PRN MED-NEB TX; PATIENT REQUESTED PRN MED-NEB C/O SOB AT THIS TIME. PRN MED-NEB ADMINISTERED. SEE INTERVENTION FOR ALL VITALS.
[2019-06-04 07:04] LABS: Basophils # (auto) 0 uL; Basophils % (auto) 0.3 % (0.0-2.0); Eosinophils # (auto) 0.2 uL; Lymphocytes # (auto) 2.3 uL; Monocytes # (auto) 0.2 uL; Neutrophils # (auto) 2.8 uL; Nucleated Red Blood Cells % 0.1 %
[2019-06-04 07:07] LABS: Eosinophils % (auto) 4.1 % (0.0-7.0); Hemoglobin 10.2 g/dL (13.5-17.5); Mean Corpuscular Hemoglobin 35.2 pg (28.0-32.0); Mean Corpuscular Volume 103.6 fL (80.0-100.0); Monocytes % (auto) 3.8 % (0.0-12.0); Neutrophils % (auto) 50.8 % (37.0-80.0); Platelet Count (auto) 199 10^3/uL (140-450); Red Cell Distribution Width 15.2 % (11.8-14.3); White Blood Cell 5.5 10^3/uL (4.4-10.8)
[2019-06-04 07:36] LABS: BUN/Creatinine Ratio 12.7; Calcium 9.3 mg/dL (8.5-10.1); Potassium 3.9 mmol/L (3.5-5.1)
--- NOTE | 2019-06-04 08:14 | NUR ---
OPENING SHIFT NOTE ASSUMED CARE OF PT. PT IS AWAKE AND ALERT. NO SOB OR SIGNS OF DISTRESS NOTED. PT REFUSED PHYSICAL THERAPY. REQUESTED RETURN AT 1300. INSTRUCTED PT ON POC. CALL LIGHT WITHIN REACH. SIDE RAILS UP X2. WILL CONTINUE TO MONITOR.
[2019-06-04 09:00] VITALS: BP 138/97
[2019-06-04] MEDS: cefTRIAXone 1GM/50ML D5W 50 ML IV SCH (09:17)
[2019-06-04] MEDS: FAMOTIDINE 20 MG TAB PO SCH (09:18)
[2019-06-04] MEDS: CYANOCOBALAMIN 500 MCG TAB PO SCH (09:19)
[2019-06-04] MEDS: MORPHINE SULF INJ 2 MG/ML SYRINGE 1ML IV PRN (09:19)
[2019-06-04] MEDS: FOLIC ACID 1 MG TAB PO SCH (09:19)
[2019-06-04] MEDS: METOPROLOL TARTRATE 25 MG TAB PO SCH ×2 (09:20→22:33)
[2019-06-04] MEDS: SACUBITRIL-VALSARTAN 24mg/26mg TAB PO SCH ×2 (09:51→22:00)
[2019-06-04] MEDS: SODIUM FERR GLUC 62.5MG/5ML 125 MG in SODIUM CHL 0.9% 100 ML IV SCH (12:07)
[2019-06-04 12:48] VITALS: BP 126/91
[2019-06-04 15:14] VITALS: BP 126/91
[2019-06-04 16:38] VITALS: BP 120/81
[2019-06-04] MEDS: guaiFENesin-CODEINE Liq 5 ML UD PO PRN (17:53)
--- NOTE | 2019-06-04 18:57 | NUR ---
Respiratory note: ASSESSMENT FOR PRN MED NEB TX. PT PRESENTING NO RESPIRATORY DISTRESS AT THIS TIME, PT RESTING COMFORTABLY IN BED. HR 71, SPO2 98% ON 4L NC, RR 20, BS CLEAR/DIMINISHED. MED NEB TX NOT INDICATED AT THIS TIME. PT AWARE TO HAVE RT PAGED IF MED NEB TX IS NEEDED, WILL CONTINUE TO MONITOR.
[2019-06-04] MEDS: DOCUSATE SOD 100 MG CAP PO SCH (22:00)
[2019-06-04 22:23] VITALS: BP 119/88
[2019-06-05 05:26] VITALS: BP 129/92
[2019-06-05] MEDS: MEXILETINE HYDROCHLORIDE 150 MG CAP PO SCH ×3 (05:26→22:00)
[2019-06-05] MEDS: FUROSEMIDE 40 MG/4 ML VIAL IV SCH ×2 (05:27→17:34)
[2019-06-05] MEDS: ISOSORBIDE DINITRATE 10 MG TAB PO SCH ×3 (05:27→17:34)
[2019-06-05] MEDS: GABAPENTIN 100 MG CAP PO SCH ×3 (05:28→22:03)
[2019-06-05 06:21] LABS: Basophils # (auto) 0 uL; Monocytes # (auto) 0.2 uL; Neutrophils # (auto) 2.9 uL; Nucleated Red Blood Cells % 0.1 %; White Blood Cell 5.4 10^3/uL (4.4-10.8)
[2019-06-05 06:22] LABS: Basophils % (auto) 0.3 % (0.0-2.0); Eosinophils # (auto) 0.3 uL; Eosinophils % (auto) 4.8 % (0.0-7.0); Hematocrit 29.9 % (41.0-53.0); Lymphocytes % (auto) 38.2 % (10.0-50.0); Mean Corpuscular Hemoglobin 34.5 pg (28.0-32.0); Mean Corpuscular Hgb Conc. 33.5 g/dL (32.0-36.0); Mean Corpuscular Volume 102.8 fL (80.0-100.0); Neutrophils % (auto) 53.7 % (37.0-80.0); Platelet Count (auto) 214 10^3/uL (140-450); Red Blood Cells 2.91 10^6/uL (4.5-5.90); Red Cell Distribution Width 15.1 % (11.8-14.3)
[2019-06-05 06:41] LABS: Potassium 3.5 mmol/L (3.5-5.1)
[2019-06-05 06:48] LABS: Albumin 2.2 g/dL (3.4-5.0); BUN/Creatinine Ratio 12.9; Bilirubin, Total 0.6 mg/dL (0.2-1.0); Calcium 8.9 mg/dL (8.5-10.1); Magnesium 2.1 mg/dL (1.6-2.6); Phosphorus 3.1 mg/dL (2.5-4.90); Total Protein 6.5 g/dL (6.4-8.2)
--- NOTE | 2019-06-05 06:57 | NUR ---
PT ASSESSED FOR PRN HHN TX. PT IS ON 2LNC, SPO2 98%, HR 69, RR 16. PT SLEEPING WITH NO S/S OF RESPIRATORY DISTRESS. HHN TX NOT INDICATED AT THIS TIME. WILL CONTINUE TO MONITOR.
--- NOTE | 2019-06-05 07:13 | NUR ---
Report given to Krista Rivera, patient is resting no distress, did not ask pain med .the whole shift.
--- NOTE | 2019-06-05 08:19 | NUR ---
OPENING SHIFT NOTE RESUMED CARE OF PT. PT IS AWAKE AND ALERT. NO SOB OR SIGNS OF DISTRESS NOTED. INSTRUCTED PT ON POC. CALL LIGHT WITHIN REACH. SIDE RAILS UP X2. WILL CONTINUE TO MONITOR.
[2019-06-05 09:00] VITALS: BP 122/80
[2019-06-05] MEDS: cefTRIAXone 1GM/50ML D5W 50 ML IV SCH (09:34)
[2019-06-05] MEDS: DOCUSATE SOD 100 MG CAP PO SCH ×2 (09:34→22:01)
[2019-06-05] MEDS: FOLIC ACID 1 MG TAB PO SCH (09:34)
[2019-06-05] MEDS: FAMOTIDINE 20 MG TAB PO SCH (09:34)
[2019-06-05] MEDS: CYANOCOBALAMIN 500 MCG TAB PO SCH (09:35)
[2019-06-05] MEDS: SACUBITRIL-VALSARTAN 24mg/26mg TAB PO SCH ×2 (09:35→22:01)
[2019-06-05] MEDS: METOPROLOL TARTRATE 25 MG TAB PO SCH ×2 (09:36→22:02)
--- NOTE | 2019-06-05 09:50 | NUR ---
PATIENT REFUSED PT. REQUESTED THAT THERAPIST RETURN AT LATER TIME.
[2019-06-05] MEDS: SODIUM FERR GLUC 62.5MG/5ML 125 MG in SODIUM CHL 0.9% 100 ML IV SCH (11:59)
--- NOTE | 2019-06-05 12:30 | NUR ---
PATIENT AMBULATING WITH PHYSICAL THERAPIST. PATIENT TOLERATING WELL.
[2019-06-05 13:00] VITALS: BP 123/81
[2019-06-05] MEDS: LACTULOSE 20Gm/30ML SOLN PO PRN ×2 (13:38→14:00)
[2019-06-05] MEDS: ALBUTEROL SULF 2.5 MG/0.5ML(0.5%) NEB SOLN NEB PRN ×2 (15:29→23:47)
[2019-06-05] MEDS: IPRATROPIUM BROM 0.5 MG/2.5ML INH SOL NEB PRN ×2 (15:29→23:47)
[2019-06-05 17:00] VITALS: BP 141/93
--- NOTE | 2019-06-05 18:47 | NUR ---
RT NOTE PT WAS SEEN BY RT FOR PRN HHN TX. PT STATES NO TREATMENT NEEDED AT THIS TIME. PT IS AWARE TO CALL IF TX IS NEEDED. NO SOB OR DISTRESS NOTED. HR 72, RR 18, BS CLEAR, POX 98% ON 2L NASAL CANNULA. CONT ORDERED Addendum: 06/05/19 at 1900 by Bernarda Diamond RT Amended: Links added.
--- NOTE | 2019-06-05 20:00 | NUR ---
Opening Shift Note Assumed care of patient, awake and alert. No S/S of distress/SOB or pain. Instructed on POC and to call for assist PRN, will continue to monitor for changes Q1hr and PRN.No appetite for dinner ,said he had fruits ,salad and bread only.
[2019-06-05 21:31] VITALS: BP 136/94
[2019-06-05] MEDS: HYDROcodone-ACET 5/325MG TAB PO PRN (22:08)
--- NOTE | 2019-06-05 22:55 | NUR ---
RT NOTE BUBBLE HUMIDIFIER CHANGED AT THIS TIME WITHOUT INCIDENT. NEW HHN SET UP PLACED IN ROOM. CONT ORDERED Addendum: 06/05/19 at 2321 by Bernarda Diamond RT Amended: Links added.
--- NOTE | 2019-06-05 23:47 | NUR ---
RT NOTE PT WAS SEEN BY RT FOR PRN HHN TX. PT TOLERATES WELL VIA MASK. NO ADVERSE REACTION NOTED. CONT ORDERED Addendum: 06/05/19 at 2356 by Bernarda Diamond RT Amended: Links added.
[2019-06-06] MEDS: IPRATROPIUM BROM 0.5 MG/2.5ML INH SOL NEB PRN ×3 (05:27→22:29)
[2019-06-06] MEDS: ALBUTEROL SULF 2.5 MG/0.5ML(0.5%) NEB SOLN NEB PRN ×3 (05:27→22:29)
[2019-06-06 05:35] VITALS: BP 129/88
[2019-06-06] MEDS: MEXILETINE HYDROCHLORIDE 150 MG CAP PO SCH ×3 (06:09→22:03)
[2019-06-06] MEDS: FUROSEMIDE 40 MG/4 ML VIAL IV SCH ×4 (06:09→19:27)
[2019-06-06] MEDS: GABAPENTIN 100 MG CAP PO SCH ×3 (06:09→22:04)
[2019-06-06] MEDS: ISOSORBIDE DINITRATE 10 MG TAB PO SCH ×3 (06:10→18:13)
[2019-06-06 07:07] LABS: Basophils # (auto) 0 uL; Eosinophils # (auto) 0.3 uL; Hemoglobin 10.6 g/dL (13.5-17.5); Lymphocytes # (auto) 2.2 uL; Lymphocytes % (auto) 49.1 % (10.0-50.0); Mean Corpuscular Hemoglobin 35.1 pg (28.0-32.0); Mean Corpuscular Hgb Conc. 33.7 g/dL (32.0-36.0); Monocytes # (auto) 0.2 uL; Neutrophils # (auto) 1.8 uL
[2019-06-06 07:10] LABS: Basophils % (auto) 0.6 % (0.0-2.0); Eosinophils % (auto) 6.1 % (0.0-7.0); Hematocrit 31.6 % (41.0-53.0); Mean Corpuscular Volume 104.2 fL (80.0-100.0); Monocytes % (auto) 4.3 % (0.0-12.0); Neutrophils % (auto) 39.9 % (37.0-80.0); Nucleated Red Blood Cells % 0.2 %; Platelet Count (auto) 214 10^3/uL (140-450); Red Blood Cells 3.03 10^6/uL (4.5-5.90); Red Cell Distribution Width 15.3 % (11.8-14.3); White Blood Cell 4.6 10^3/uL (4.4-10.8)
[2019-06-06 07:24] LABS: Albumin 2.2 g/dL (3.4-5.0); Magnesium 2.1 mg/dL (1.6-2.6); Potassium 3.3 mmol/L (3.5-5.1)
[2019-06-06 07:29] LABS: BUN/Creatinine Ratio 11.3; Bilirubin, Total 0.6 mg/dL (0.2-1.0); Phosphorus 3.1 mg/dL (2.5-4.90); Total Protein 6.5 g/dL (6.4-8.2)
--- NOTE | 2019-06-06 07:36 | NUR ---
Report given to Jannie Paul, patient advised NPO for FNA of the thyroid nodule.
[2019-06-06 08:46] VITALS: BP 126/83
[2019-06-06] MEDS: CYANOCOBALAMIN 500 MCG TAB PO SCH (09:47)
[2019-06-06] MEDS: FOLIC ACID 1 MG TAB PO SCH (09:48)
[2019-06-06] MEDS: SACUBITRIL-VALSARTAN 24mg/26mg TAB PO SCH ×2 (09:48→22:02)
[2019-06-06] MEDS: METOPROLOL TARTRATE 25 MG TAB PO SCH ×2 (09:48→22:03)
[2019-06-06] MEDS: DOCUSATE SOD 100 MG CAP PO SCH ×2 (09:48→22:02)
[2019-06-06] MEDS: FAMOTIDINE 20 MG TAB PO SCH (09:48)
[2019-06-06] MEDS: cefTRIAXone 1GM/50ML D5W 50 ML IV SCH (09:49)
[2019-06-06 10:09] LABS: INR 1.31 (0.9-1.15)
--- NOTE | 2019-06-06 11:16 | NUR ---
PT Patient pleasantly refused to be OOB during morning PT visit and stated he will have a procedure done today. Addendum: 06/06/19 at 1119 by HILARIA PARK PTT Amended: Links added.
[2019-06-06 13:00] VITALS: BP 132/95
[2019-06-06] MEDS: SODIUM FERR GLUC 62.5MG/5ML 125 MG in SODIUM CHL 0.9% 100 ML IV SCH (13:32)
[2019-06-06] MEDS ORDERED: POTASSIUM CHL 20 Meq TABLET PO ONE (15:15)
[2019-06-06] MEDS: HYDROcodone-ACET 5/325MG TAB PO PRN (16:54)
[2019-06-06 17:00] VITALS: BP 118/85
--- NOTE | 2019-06-06 17:08 | NUR ---
Assessment Pt is a 68 yr old alert and oriented male. Prior to admit, pt lives with his [facility] caregiver, Rene Fortune, who is emergency contact at [phone]. Pt's caregiver cooks, cleans, transports and assists with ADL's. Pt ambulates with walker/cane and has a nebulizer. Pt stated that he needs 02 but his room air 02 levels don't meet the qualifications for home 02. Pt admitted with SOB and chest pain. Pt's Primary is Dr Amy Perez and no AD on file. Pt receives income. Pt stated that he needs medical transportation upon d/c. Pt will d/c home upon medical clearance. No other needs or concerns at this time. Addendum: 06/06/19 at 1720 by SHANE STARK Amended: Links added.
--- NOTE | 2019-06-06 19:20 | NUR ---
Opening Shift Note Assumed care of patient, awake and alert. No S/S of distress/SOB or pain. POC discussed and questions answered. Bed is locked in lowest position with side rails x2, call light is within reach and to call for assistance as needed, will continue to monitor for changes Q1hr and PRN.
[2019-06-06] MEDS: ACETAMINOPHEN 500 MG TAB PO PRN (20:07)
[2019-06-06 21:32] VITALS: BP 120/87
[2019-06-07] MEDS: MORPHINE SULF INJ 2 MG/ML SYRINGE 1ML IV PRN ×2 (00:39→22:04)
[2019-06-07] MEDS: IPRATROPIUM BROM 0.5 MG/2.5ML INH SOL NEB PRN ×3 (02:34→14:05)
[2019-06-07] MEDS: ALBUTEROL SULF 2.5 MG/0.5ML(0.5%) NEB SOLN NEB PRN ×3 (02:34→14:05)
[2019-06-07 04:32] VITALS: BP 127/95
[2019-06-07] MEDS: ISOSORBIDE DINITRATE 10 MG TAB PO SCH ×3 (06:00→17:49)
[2019-06-07] MEDS: MEXILETINE HYDROCHLORIDE 150 MG CAP PO SCH ×3 (06:00→21:54)
[2019-06-07] MEDS: FUROSEMIDE 40 MG/4 ML VIAL IV SCH ×2 (06:00→17:48)
[2019-06-07] MEDS: GABAPENTIN 100 MG CAP PO SCH ×3 (06:00→21:54)
[2019-06-07 06:04] LABS: Basophils # (auto) 0 uL; Eosinophils # (auto) 0.2 uL; Hemoglobin 10.9 g/dL (13.5-17.5); Mean Corpuscular Hemoglobin 34.7 pg (28.0-32.0); Monocytes # (auto) 0.2 uL; Nucleated Red Blood Cells % 0.1 %; Red Blood Cells 3.13 10^6/uL (4.5-5.90)
[2019-06-07 06:07] LABS: Basophils % (auto) 0.6 % (0.0-2.0); Eosinophils % (auto) 4.9 % (0.0-7.0); Hematocrit 32.6 % (41.0-53.0); Lymphocytes # (auto) 2.3 uL; Lymphocytes % (auto) 49.7 % (10.0-50.0); Mean Corpuscular Hgb Conc. 33.3 g/dL (32.0-36.0); Mean Corpuscular Volume 104.2 fL (80.0-100.0); Neutrophils # (auto) 1.9 uL; Neutrophils % (auto) 40.8 % (37.0-80.0); Platelet Count (auto) 234 10^3/uL (140-450); Red Cell Distribution Width 14.9 % (11.8-14.3); White Blood Cell 4.7 10^3/uL (4.4-10.8)
[2019-06-07 06:25] LABS: Potassium 3.8 mmol/L (3.5-5.1)
[2019-06-07 06:30] LABS: BUN/Creatinine Ratio 10.7; Calcium 8.9 mg/dL (8.5-10.1)
[2019-06-07 09:00] VITALS: BP 127/96
[2019-06-07] MEDS: APIXABAN 2.5 MG TAB PO SCH ×3 (09:19→21:53)
[2019-06-07] MEDS: cefTRIAXone 1GM/50ML D5W 50 ML IV SCH (09:19)
[2019-06-07] MEDS: DOCUSATE SOD 100 MG CAP PO SCH ×2 (09:43→21:53)
[2019-06-07] MEDS: FOLIC ACID 1 MG TAB PO SCH (09:43)
[2019-06-07] MEDS: CYANOCOBALAMIN 500 MCG TAB PO SCH (09:44)
[2019-06-07] MEDS: SACUBITRIL-VALSARTAN 24mg/26mg TAB PO SCH ×2 (09:44→21:54)
[2019-06-07] MEDS: FAMOTIDINE 20 MG TAB PO SCH (09:44)
[2019-06-07] MEDS: METOPROLOL TARTRATE 25 MG TAB PO SCH ×2 (09:45→21:54)
--- NOTE | 2019-06-07 11:21 | NUR ---
SPOKE TO PATHOLOGY DEPARTMENT THEY SAID RESULTS TAKE ABOUT A WEEK.
[2019-06-07 13:00] VITALS: BP 130/101
[2019-06-07] MEDS: HYDROcodone-ACET 5/325MG TAB PO PRN (15:08)
--- NOTE | 2019-06-07 15:23 | NUR ---
Nutrition Follow-up Notes Wt.: 105.1 kg as of yesterday Pt's on oxygen via nasal cannula, asleep, no immediate family member at bedside during rounds this morning. Pt's no signs of distress noted earlier, currently on 2 gms Na diet with inadequate PO intake aeb <50 % ave. consumed meals (x5) in last 2.5 days. Noted pt's for active Radiology, Cole/Oncology and Cardiology consults. Est. Needs based on ABW (99 kg): 2277-2475kcal (23-25 kcal/kgBW), 79-99 gms pro (0.8-1.0 gms/kgBW r/t elev RFT). Will continue to monitor pertinent labs and reassess nutrient need prn Labs: Gluc 143 H, Cr 1.59 H; AST 85 H, ALT 83 H, ALP 181 H, Alb 2.2 L. Skin: José Miguel scale 21, low risk, skin intact per acute care occupational therapist. GI: Pt had 1 BM yesterday per acute care occupational therapist. PES: Altered nutrition related lab values r/t current/chronic medical condition aeb elev RFT mild hypoalb Will continue to monitor PO intake, skin status, pertinent labs and weight trend. F/u in 3 to 5 days. Rec.: 1.) Consider Cardiac: 2 gms Na, Low Chol, Low Fat diet. 2.) If Albumin continues trending down, consider Prostat 1 pkt BID. 3.) Continue close supervision during meals. 4.) If pt's PO intake remains inadequate (<75%), consider Ensure Enlive 1 carton BID. 5.) Refer pt to RD for further nutrition education and weight monitoring upon discharge. 6.) Continue current plan of care.
[2019-06-07 17:00] VITALS: BP 133/92
--- NOTE | 2019-06-07 19:30 | NUR ---
IV removal IV DC'd with clean sterile technique, catheter fully intact. Pressure dressing applied to site. Patient tolerated well.
--- NOTE | 2019-06-07 20:20 | NUR ---
IV insertion IV access obtained, via clean sterile technique by inserting 20 gauge catheter at left hand after 1 attempt. IV secured properly. No trauma to site. Patient tolerated well.
[2019-06-07 21:56] VITALS: BP 126/76
[2019-06-08 00:33] VITALS: BP 124/92
[2019-06-08] MEDS: IPRATROPIUM BROM 0.5 MG/2.5ML INH SOL NEB PRN ×2 (01:06→07:23)
[2019-06-08] MEDS: ALBUTEROL SULF 2.5 MG/0.5ML(0.5%) NEB SOLN NEB PRN ×2 (01:07→07:23)
[2019-06-08] MEDS: guaiFENesin-CODEINE Liq 5 ML UD PO PRN (01:11)
[2019-06-08 04:55] VITALS: BP 129/88
[2019-06-08] MEDS: ISOSORBIDE DINITRATE 10 MG TAB PO SCH ×2 (06:02→11:59)
[2019-06-08] MEDS: FUROSEMIDE 40 MG/4 ML VIAL IV SCH (06:02)
[2019-06-08] MEDS: GABAPENTIN 100 MG CAP PO SCH (06:03)
[2019-06-08] MEDS: MEXILETINE HYDROCHLORIDE 150 MG CAP PO SCH (06:03)
--- NOTE | 2019-06-08 07:30 | NUR ---
RECEIVED REPORT FROM NIGHT NURSE. PATIENT RESTING IN BED, NO DISTRESS NOTED. WILL CONTINUE TO MONITOR.
[2019-06-08] MEDS: HYDROcodone-ACET 5/325MG TAB PO PRN (08:37)
[2019-06-08 09:00] VITALS: BP 117/83
[2019-06-08] MEDS: cefTRIAXone 1GM/50ML D5W 50 ML IV SCH (09:00)
[2019-06-08] MEDS ORDERED: POTASSIUM CHL 20 Meq TABLET PO SCH (10:00)
[2019-06-08] MEDS: SACUBITRIL-VALSARTAN 24mg/26mg TAB PO SCH (10:06)
[2019-06-08] MEDS: FAMOTIDINE 20 MG TAB PO SCH (10:06)
[2019-06-08] MEDS: APIXABAN 2.5 MG TAB PO SCH (10:07)
[2019-06-08] MEDS: CYANOCOBALAMIN 500 MCG TAB PO SCH (10:07)
[2019-06-08] MEDS: FOLIC ACID 1 MG TAB PO SCH (10:07)
[2019-06-08] MEDS: METOPROLOL TARTRATE 25 MG TAB PO SCH (10:07)
[2019-06-08] MEDS: DOCUSATE SOD 100 MG CAP PO SCH (10:08)
[2019-06-08 12:34] VITALS: BP 127/84
--- NOTE | 2019-06-08 14:21 | NUR ---
Discharge instructions given as ordered. Encourage to follow up with PMD as instructed. All questions and concerns addressed. Patient verbalized understanding. Medication reconciliation form completed and copy given to patient. IV removed with catheter intact, pressure dressing applied. Telemetry unit returned to ICU. Patient taken to awaiting taxi via wheelchair with all personal belongings, accompanied by staff member. No distress noted at time of departure.
== END 2019-06-08 14:20 | disposition home or self-care (01) | DRG 177 ==
LOC: ER 08:22 → TELE 08:23 → TELE-EAST 18:25
PROVIDERS: ADMIT Nurse Practitioner Acute Care; ATTEND Internal Medicine Nephrology
PROC: 0GBH3ZX Excision of Right Thyroid Gland Lobe, Percutaneous Approach, Diagnostic (ICD-10-PCS; principal; 2019-06-06)
DX: J15.0 Pneumonia due to Klebsiella pneumoniae (principal); N17.0 Acute kidney failure with tubular necrosis; I50.23 Acute on chronic systolic (congestive) heart failure; I13.0 Hypertensive heart and chronic kidney disease with heart failure and stage 1 through stage 4 chronic kidney disease, or unspecified chronic kidney disease; C81.90 Hodgkin lymphoma, unspecified, unspecified site; E44.1 Mild protein-calorie malnutrition; C91.10 Chronic lymphocytic leukemia of B-cell type not having achieved remission; J44.0 Chronic obstructive pulmonary disease with (acute) lower respiratory infection; D53.9 Nutritional anemia, unspecified; I48.91 Unspecified atrial fibrillation; J44.9 Chronic obstructive pulmonary disease, unspecified; N18.3 Chronic kidney disease, stage 3 (moderate); E11.22 Type 2 diabetes mellitus with diabetic chronic kidney disease; I25.10 Atherosclerotic heart disease of native coronary artery without angina pectoris; E04.1 Nontoxic single thyroid nodule; D47.2 Monoclonal gammopathy; J20.9 Acute bronchitis, unspecified; F15.10 Other stimulant abuse, uncomplicated; E11.42 Type 2 diabetes mellitus with diabetic polyneuropathy; E87.6 Hypokalemia; F17.210 Nicotine dependence, cigarettes, uncomplicated; Z79.01 Long term (current) use of anticoagulants; Z79.899 Other long term (current) drug therapy; Z82.3 Family history of stroke; Z68.29 Body mass index [BMI] 29.0-29.9, adult; Z95.810 Presence of automatic (implantable) cardiac defibrillator; Z95.5 Presence of coronary angioplasty implant and graft; Z88.8 Allergy status to other drugs, medicaments and biological substances; Z82.49 Family history of ischemic heart disease and other diseases of the circulatory system; Z83.3 Family history of diabetes mellitus; Z86.73 Personal history of transient ischemic attack (TIA), and cerebral infarction without residual deficits; Z88.6 Allergy status to analgesic agent
CPT/HCPCS: 10022; 36415; 71045; 71046; 71250; 74176; 76536; 76942; 77074; 80048; 80053; 80061; 80307; 81001; 82232; 82270; 82607; 82728; 82746; 82784; 83010; 83540; 83550; 83615; 83735; 83880; 83883; 84100; 84439; 84443; 84484; 85007; 85025; 85027; 85379; 85610; 86141; 86334; 86880; 87040; 87070; 87077; 87186; 87205; 87804; 93005; 93306; 94640; 97116; 97530; 99291; G0378; J0696; J1756; J1956